=== PATIENT | female | born 1940 | race Caucasian/White ===

== ENCOUNTER → 2016-12-22 | Outpatient (CLI) | payer MEDICARE, MEDICAID ==
[~2016-12-22] VITALS: Ht 167.6 cm; Wt 48.5 kg
[~2016-12-22] MED LIST: ASPI-556 PO; ATOR40TA28 PO; CALC-879 PO; DIGO125T PO; ISOS10TA16 PO; ISOS30TA6 PO; MEMA5 PO; METO100XL PO; NITR.4 SL; PRED5TAB PO; RANO500T3 PO; ROFL500T PO; VITAD1000 PO
[2016-12-22 12:09] VITALS: BP 129/66
== END | disposition home or self-care (01) ==
LOC: SRCNTR 12:02
PROVIDERS: ATTEND Hospitalist
DX: J44.9 Chronic obstructive pulmonary disease, unspecified (principal); E78.5 Hyperlipidemia, unspecified; I25.10 Atherosclerotic heart disease of native coronary artery without angina pectoris; I49.9 Cardiac arrhythmia, unspecified; I10 Essential (primary) hypertension; M19.90 Unspecified osteoarthritis, unspecified site; F03.90 Unspecified dementia, unspecified severity, without behavioral disturbance, psychotic disturbance, mood disturbance, and anxiety
CPT/HCPCS: G0463

== ENCOUNTER → 2017-01-30 | Outpatient (CLI) | payer MEDICARE, MEDICAID ==
[~2017-01-30] VITALS: Ht 167.6 cm; Wt 49.0 kg
[~2017-01-30] MED LIST changes: -CALC-879 PO; -ISOS30TA6 PO; -PRED5TAB PO; -RANO500T3 PO; -ROFL500T PO
[2017-01-30 10:59] VITALS: BP 130/72
== END | disposition home or self-care (01) ==
LOC: SRCNTR 10:37
PROVIDERS: ATTEND Hospitalist
DX: J44.9 Chronic obstructive pulmonary disease, unspecified (principal); I10 Essential (primary) hypertension; E78.5 Hyperlipidemia, unspecified; I49.9 Cardiac arrhythmia, unspecified
CPT/HCPCS: G0463

== ENCOUNTER → 2017-02-05 | Outpatient (CLI) | payer MEDICARE, OTHER ==
[2017-02-05 12:43] LABS: BASOPHILS % (AUTO) 0.4 % (0.0-2.0); EOSINOPHILS % (AUTO) 0.8 % (1.0-6.0); HEMATOCRIT 45.6 % (36-46); HEMOGLOBIN 14.7 g/dL (12.0-16.0); LYMPHOCYTES # (AUTO) 1.8 K/uL (1.0-4.8); LYMPHOCYTES % (AUTO) 21.5 % (22.0-44.0); MEAN CORPUSCULAR HEMOGLOBIN 29.4 pg (26.0-34.0); MEAN CORPUSCULAR HGB CONC 32.3 G/dL (31.0-37.0); MEAN CORPUSCULAR VOLUME 91 fL (80-100); MONOCYTES # (AUTO) 0.5 K/uL (0.1-1.0); MONOCYTES % (AUTO) 6.1 % (2.0-9.0); NEUTROPHILS # (AUTO) 5.8 K/uL (1.8-7.7); NEUTROPHILS % (AUTO) 71.2 % (40.0-70.0); PLATELET COUNT (AUTO) 284 K/uL (150-450); RED CELL DISTRIBUTION WIDTH 13.3 % (11.5-14.5); WHITE BLOOD COUNT (AUTO) 8.2 K/uL (4.5-11.0)
[2017-02-05 12:53] LABS: HEMOGLOBIN A1C 5.6 % (4.5-6.2)
[2017-02-05 12:57] LABS: B-TYPE NATRIURETIC PEPTIDE 37 pg/mL (0-100)
[2017-02-05 13:09] LABS: ALANINE AMINOTRANSFERASE 28 U/L (12-78); ANION GAP 2 mmol/L (8-16); ASPARTATE AMINOTRANSFERASE 22 U/L (15-37); BILIRUBIN,TOTAL 0.7 mg/dL (0.1-1.0); CALCIUM, TOTAL 9.4 mg/dL (8.8-10.5); CARBON DIOXIDE 34 mmol/L (22-29); CHLORIDE 103 mmol/L (98-107); CHOL/HDL RATIO 2.3 (3.9-5.7); CREATININE 0.87 mg/dL (0.60-1.30); DIGOXIN < 0.20 ng/mL (0.90-2.00); GLOMERULAR FILTR. RATE CALC > 60 mL/min (>60); POTASSIUM 3.9 mmol/L (3.5-5.1); SODIUM SERUM 139 mmol/L (136-145); THYROID STIMULATING HORMONE 1.08 uIU/mL (0.36-3.74); TOTAL PROTEIN, SERUM 7.4 g/dL (6.4-8.2); UREA NITROGEN, BLOOD 20 mg/dL (7-18)
== END | disposition home or self-care (01) ==
LOC: LABPV 12:05
PROVIDERS: ATTEND Internal Medicine Cardiovascular Disease
DX: I11.0 Hypertensive heart disease with heart failure (principal); I50.9 Heart failure, unspecified; E11.8 Type 2 diabetes mellitus with unspecified complications; E55.9 Vitamin D deficiency, unspecified
CPT/HCPCS: 82306; 83036; 83735; 84439; 84443; 84480

== ENCOUNTER → 2017-03-12 | Outpatient (CLI) | payer MEDICARE, OTHER ==
[2017-03-12 11:06] LABS: BASOPHILS % (AUTO) 0.4 % (0.0-2.0); EOSINOPHILS % (AUTO) 1.5 % (1.0-6.0); HEMATOCRIT 46.4 % (36-46); HEMOGLOBIN 14.6 g/dL (12.0-16.0); LYMPHOCYTES # (AUTO) 1.7 K/uL (1.0-4.8); LYMPHOCYTES % (AUTO) 11.6 % (22.0-44.0); MEAN CORPUSCULAR HEMOGLOBIN 28.9 pg (26.0-34.0); MEAN CORPUSCULAR HGB CONC 31.4 G/dL (31.0-37.0); MEAN CORPUSCULAR VOLUME 92 fL (80-100); MONOCYTES # (AUTO) 0.7 K/uL (0.1-1.0); MONOCYTES % (AUTO) 4.7 % (2.0-9.0); NEUTROPHILS # (AUTO) 12.2 K/uL (1.8-7.7); NEUTROPHILS % (AUTO) 81.8 % (40.0-70.0); PLATELET COUNT (AUTO) 505 K/uL (150-450); RED BLOOD CELL COUNT(AUTO) 5.04 MIL/uL (4.00-5.20); RED CELL DISTRIBUTION WIDTH 13.8 % (11.5-14.5)
[2017-03-12 11:20] LABS: HEMOGLOBIN A1C 5.3 % (4.5-6.2)
[2017-03-12 11:30] LABS: ALANINE AMINOTRANSFERASE 22 U/L (12-78); ALBUMIN 3.4 g/dL (3.4-5.0); ANION GAP 4 mmol/L (8-16); ASPARTATE AMINOTRANSFERASE 19 U/L (15-37); BILIRUBIN,TOTAL 0.3 mg/dL (0.1-1.0); CALCIUM, TOTAL 9.5 mg/dL (8.8-10.5); CARBON DIOXIDE 36 mmol/L (22-29); CHLORIDE 104 mmol/L (98-107); CHOL/HDL RATIO 4.2 (3.9-5.7); CREATININE 1.03 mg/dL (0.60-1.30); GLOMERULAR FILTR. RATE CALC 52 mL/min (>60); POTASSIUM 4.3 mmol/L (3.5-5.1); SODIUM SERUM 144 mmol/L (136-145); THYROID STIMULATING HORMONE 1.07 uIU/mL (0.36-3.74); TOTAL PROTEIN, SERUM 7.3 g/dL (6.4-8.2); UREA NITROGEN, BLOOD 19 mg/dL (7-18)
[2017-03-12 11:43] LABS: DIGOXIN < 0.20 ng/mL (0.90-2.00)
[2017-03-12 11:45] LABS: B-TYPE NATRIURETIC PEPTIDE 74 pg/mL (0-100)
== END | disposition home or self-care (01) ==
LOC: LABPV 09:49
PROVIDERS: ATTEND Internal Medicine Cardiovascular Disease
DX: I11.0 Hypertensive heart disease with heart failure (principal); I50.9 Heart failure, unspecified; E11.8 Type 2 diabetes mellitus with unspecified complications; E55.9 Vitamin D deficiency, unspecified
CPT/HCPCS: 82306; 83036; 83735; 84439; 84443

== ENCOUNTER → 2017-04-24 | Outpatient (CLI) | payer MEDICARE, OTHER | END | disposition home or self-care (01) | LOC: RADMN 13:30 | PROVIDERS: ATTEND Internal Medicine Pulmonary Disease | DX: J44.1 Chronic obstructive pulmonary disease with (acute) exacerbation (principal); J98.8 Other specified respiratory disorders | CPT/HCPCS: 71250 ==

== ENCOUNTER → 2017-05-13 | Outpatient (CLI) | payer MEDICARE, OTHER ==
[2017-05-13 11:42] LABS: BASOPHILS # (AUTO) 0.03 K/uL (0.00-0.20); BASOPHILS % (AUTO) 0.4 % (0.0-2.0); EOSINOPHILS % (AUTO) 0 % (1.0-6.0); HEMATOCRIT 44.4 % (36-46); HEMOGLOBIN 14.5 g/dL (12.0-16.0); LYMPHOCYTES # (AUTO) 1.3 K/uL (1.0-4.8); LYMPHOCYTES % (AUTO) 16.5 % (22.0-44.0); MEAN CORPUSCULAR HEMOGLOBIN 30.4 pg (26.0-34.0); MEAN CORPUSCULAR HGB CONC 32.6 G/dL (31.0-37.0); MEAN CORPUSCULAR VOLUME 93 fL (80-100); MONOCYTES # (AUTO) 0.5 K/uL (0.1-1.0); MONOCYTES % (AUTO) 6.8 % (2.0-9.0); NEUTROPHILS % (AUTO) 76.4 % (40.0-70.0); PLATELET COUNT (AUTO) 255 K/uL (150-450); RED BLOOD CELL COUNT(AUTO) 4.77 MIL/uL (4.00-5.20); RED CELL DISTRIBUTION WIDTH 13.5 % (11.5-14.5); WHITE BLOOD COUNT (AUTO) 7.9 K/uL (4.5-11.0)
[2017-05-13 12:14] LABS: ALBUMIN 3.9 g/dL (3.4-5.0); BILIRUBIN,TOTAL 0.6 mg/dL (0.1-1.0); CALCIUM, TOTAL 8.9 mg/dL (8.8-10.5); CHOL/HDL RATIO 2.6 (3.9-5.7); CREATININE 0.98 mg/dL (0.60-1.30); MAGNESIUM 1.9 mg/dL (1.80-2.40); POTASSIUM 3.9 mmol/L (3.5-5.1); THYROID STIMULATING HORMONE 1.05 uIU/mL (0.36-3.74); TOTAL PROTEIN, SERUM 6.9 g/dL (6.4-8.2)
[2017-05-13 12:25] LABS: HEMOGLOBIN A1C 5.1 % (4.5-6.2)
== END | disposition home or self-care (01) ==
LOC: LABPV 09:18
PROVIDERS: ATTEND Internal Medicine Cardiovascular Disease
DX: I11.0 Hypertensive heart disease with heart failure (principal); I50.9 Heart failure, unspecified; E11.8 Type 2 diabetes mellitus with unspecified complications; E55.9 Vitamin D deficiency, unspecified
CPT/HCPCS: 82306; 83036; 83735; 84439; 84443

== ENCOUNTER → 2017-07-16 | Outpatient (CLI) | payer MEDICARE, OTHER ==
[2017-07-16 13:01] LABS: BASOPHILS % (AUTO) 0.4 % (0.0-2.0); EOSINOPHILS % (AUTO) 0 % (1.0-6.0); HEMATOCRIT 45.3 % (36-46); HEMOGLOBIN 15.3 g/dL (12.0-16.0); LYMPHOCYTES # (AUTO) 1.6 K/uL (1.0-4.8); LYMPHOCYTES % (AUTO) 20.6 % (22.0-44.0); MEAN CORPUSCULAR HEMOGLOBIN 30.5 pg (26.0-34.0); MEAN CORPUSCULAR HGB CONC 33.7 G/dL (31.0-37.0); MEAN CORPUSCULAR VOLUME 90 fL (80-100); MONOCYTES # (AUTO) 0.6 K/uL (0.1-1.0); MONOCYTES % (AUTO) 7.3 % (2.0-9.0); NEUTROPHILS # (AUTO) 5.6 K/uL (1.8-7.7); NEUTROPHILS % (AUTO) 71.7 % (40.0-70.0); PLATELET COUNT (AUTO) 277 K/uL (150-450); RED BLOOD CELL COUNT(AUTO) 5.01 MIL/uL (4.00-5.20); RED CELL DISTRIBUTION WIDTH 12.9 % (11.5-14.5); WHITE BLOOD COUNT (AUTO) 7.8 K/uL (4.5-11.0)
[2017-07-16 13:04] LABS: HEMOGLOBIN A1C 5.5 % (4.5-6.2)
[2017-07-16 13:16] LABS: ALBUMIN 4.1 g/dL (3.4-5.0); BILIRUBIN,TOTAL 0.6 mg/dL (0.1-1.0); CALCIUM, TOTAL 9.8 mg/dL (8.8-10.5); CHOL/HDL RATIO 3.5 (3.9-5.7); CREATININE 0.99 mg/dL (0.60-1.30); DIGOXIN 0.22 ng/mL (0.90-2.00); POTASSIUM 4.4 mmol/L (3.5-5.1); THYROID STIMULATING HORMONE 1.73 uIU/mL (0.36-3.74); TOTAL PROTEIN, SERUM 7.3 g/dL (6.4-8.2)
== END | disposition home or self-care (01) ==
LOC: LABPV 11:11
PROVIDERS: ATTEND Internal Medicine Cardiovascular Disease
DX: I11.0 Hypertensive heart disease with heart failure (principal); I50.9 Heart failure, unspecified; E55.9 Vitamin D deficiency, unspecified; E11.8 Type 2 diabetes mellitus with unspecified complications
CPT/HCPCS: 82306; 83036; 83735; 84439; 84443

== ENCOUNTER → 2017-08-17 | Outpatient (CLI) | payer MEDICARE, OTHER ==
[~2017-08-17] MED LIST changes: +BUDE10.2 IH; +BUDE180H PO; +CARV6 PO; +CINA30 PO; +CIPR-278 PO; +CLOP75 PO; +DILT60 PO; +DONE5TAB5 PO; +HYDR25TA PO; +IPRA4AER IH; +PRED20 PO; +ROFL500T PO; +VERA120 PO
== END | disposition home or self-care (01) ==
LOC: RADPV 09:25
PROVIDERS: ATTEND Internal Medicine Cardiovascular Disease
DX: J98.11 Atelectasis (principal); J98.4 Other disorders of lung; I70.0 Atherosclerosis of aorta
CPT/HCPCS: 71020

== ENCOUNTER → 2017-10-05 | Outpatient (CLI) | payer MEDICARE, OTHER ==
[2017-10-05 10:49] LABS: BASOPHILS % (AUTO) 0.6 % (0.0-2.0); EOSINOPHILS % (AUTO) 0.4 % (1.0-6.0); HEMATOCRIT 44.6 % (36-46); HEMOGLOBIN 14.7 g/dL (12.0-16.0); LYMPHOCYTES # (AUTO) 1.4 K/uL (1.0-4.8); LYMPHOCYTES % (AUTO) 16.2 % (22.0-44.0); MEAN CORPUSCULAR HEMOGLOBIN 30.5 pg (26.0-34.0); MEAN CORPUSCULAR VOLUME 92 fL (80-100); MONOCYTES # (AUTO) 0.6 K/uL (0.1-1.0); MONOCYTES % (AUTO) 6.4 % (2.0-9.0); NEUTROPHILS # (AUTO) 6.8 K/uL (1.8-7.7); NEUTROPHILS % (AUTO) 76.4 % (40.0-70.0); PLATELET COUNT (AUTO) 286 K/uL (150-450); RED BLOOD CELL COUNT(AUTO) 4.84 MIL/uL (4.00-5.20); RED CELL DISTRIBUTION WIDTH 13.9 % (11.5-14.5); WHITE BLOOD COUNT (AUTO) 8.9 K/uL (4.5-11.0)
[2017-10-05 11:05] LABS: ALANINE AMINOTRANSFERASE 24 U/L (12-78); ALBUMIN 4.2 g/dL (3.4-5.0); ANION GAP 6 mmol/L (8-16); ASPARTATE AMINOTRANSFERASE 26 U/L (15-37); BILIRUBIN,TOTAL 0.6 mg/dL (0.1-1.0); CALCIUM, TOTAL 9.5 mg/dL (8.8-10.5); CARBON DIOXIDE 32 mmol/L (22-29); CHLORIDE 104 mmol/L (98-107); CHOL/HDL RATIO 2.6 (3.9-5.7); CREATININE 0.95 mg/dL (0.60-1.30); GLOMERULAR FILTR. RATE CALC 57 mL/min (>60); POTASSIUM 4.4 mmol/L (3.5-5.1); SODIUM SERUM 142 mmol/L (136-145); THYROID STIMULATING HORMONE 1.56 uIU/mL (0.36-3.74); TOTAL PROTEIN, SERUM 7.3 g/dL (6.4-8.2); UREA NITROGEN, BLOOD 23 mg/dL (7-18)
[2017-10-05 11:18] LABS: HEMOGLOBIN A1C 5.3 % (4.5-6.2)
[2017-10-05 12:20] LABS: DIGOXIN < 0.20 ng/mL (0.90-2.00)
== END | disposition home or self-care (01) ==
LOC: LABPV 08:26
PROVIDERS: ATTEND Internal Medicine Cardiovascular Disease
DX: I11.0 Hypertensive heart disease with heart failure (principal); I50.9 Heart failure, unspecified; E11.65 Type 2 diabetes mellitus with hyperglycemia; E55.9 Vitamin D deficiency, unspecified
CPT/HCPCS: 82306; 83036; 83735; 84439; 84443

== ENCOUNTER 2017-10-09 09:51 | Emergency (ER) | payer MEDICARE, OTHER ==
[~2017-10-09] VITALS: Ht 167.6 cm; Wt 50.0 kg
[~2017-10-09 09:51] MED LIST changes: -BUDE10.2 IH; -BUDE180H PO; -CARV6 PO; -CINA30 PO; -CIPR-278 PO; -CLOP75 PO; -DILT60 PO; -DONE5TAB5 PO; -HYDR25TA PO; -IPRA4AER IH; -PRED20 PO; -ROFL500T PO; -VERA120 PO
[2017-10-09] MEDS ORDERED: ACETAMINOPHEN 325 MG TABLET PO ONE (10:30)
[2017-10-09] MEDS ORDERED: KETOROLAC TROMETHAMINE 30 MG/ML VIAL IVP ONE (10:30)
[2017-10-09] MEDS ORDERED: MORPHINE SULFATE 2 MG/ML SYRINGE IVP ONE (10:30)
[2017-10-09 11:55] VITALS: BP 116/72
== END 2017-10-09 12:09 | disposition home or self-care (01) ==
LOC: EMS 09:52
DX: M54.9 Dorsalgia, unspecified (principal); M79.601 Pain in right arm; M79.602 Pain in left arm; G89.29 Other chronic pain; I25.10 Atherosclerotic heart disease of native coronary artery without angina pectoris; J44.9 Chronic obstructive pulmonary disease, unspecified; I11.9 Hypertensive heart disease without heart failure; I25.2 Old myocardial infarction; Z87.891 Personal history of nicotine dependence; Z88.5 Allergy status to narcotic agent; Z88.8 Allergy status to other drugs, medicaments and biological substances
CPT/HCPCS: 96374; 96375; 99284; J1885; J2270

== ENCOUNTER 2017-11-11 06:58 | Emergency (ER) | payer MEDICARE ==
[~2017-11-11] VITALS: Ht 157.5 cm; Wt 43.0 kg
[2017-11-11] MEDS ORDERED: CINA30 PO (07:18)
[2017-11-11] MEDS ORDERED: DILT60 PO (07:18)
[2017-11-11] MEDS ORDERED: CARV6 PO (07:18)
[2017-11-11] MEDS ORDERED: CLOP75 PO (07:18)
[2017-11-11] MEDS ORDERED: BUDE10.2 IH (07:18)
[2017-11-11] MEDS ORDERED: ROFL500T PO (07:18)
[2017-11-11] MEDS ORDERED: VERA120 PO (07:18)
[2017-11-11] MEDS ORDERED: HYDR25TA PO (07:18)
[2017-11-11] MEDS ORDERED: CIPR-278 PO (07:18)
[2017-11-11 09:55] LABS: BASOPHILS % (AUTO) 0.1 % (0.0-2.0); EOSINOPHILS % (AUTO) 0 % (1.0-6.0); HEMATOCRIT 42.1 % (36-46); HEMOGLOBIN 13.9 g/dL (12.0-16.0); LYMPHOCYTES # (AUTO) 1.3 K/uL (1.0-4.8); LYMPHOCYTES % (AUTO) 11.5 % (22.0-44.0); MEAN CORPUSCULAR HEMOGLOBIN 29.9 pg (26.0-34.0); MEAN CORPUSCULAR VOLUME 91 fL (80-100); MONOCYTES # (AUTO) 0.5 K/uL (0.1-1.0); MONOCYTES % (AUTO) 4.7 % (2.0-9.0); NEUTROPHILS # (AUTO) 9.4 K/uL (1.8-7.7); NEUTROPHILS % (AUTO) 83.7 % (40.0-70.0); PLATELET COUNT (AUTO) 291 K/uL (150-450); RED BLOOD CELL COUNT(AUTO) 4.64 MIL/uL (4.00-5.20); RED CELL DISTRIBUTION WIDTH 14.3 % (11.5-14.5)
[2017-11-11 10:09] LABS: CALCIUM, TOTAL 8.4 mg/dL (8.8-10.5); CREATININE 1.11 mg/dL (0.60-1.30); POTASSIUM 3.7 mmol/L (3.5-5.1)
[2017-11-11 10:15] LABS: BILIRUBIN,TOTAL 0.6 mg/dL (0.1-1.0); TOTAL PROTEIN, SERUM 6.6 g/dL (6.4-8.2)
[2017-11-11 12:36] VITALS: BP 130/68
== END 2017-11-11 12:58 | disposition home or self-care (01) ==
LOC: EMS 06:59
DX: R06.02 Shortness of breath (principal); R06.2 Wheezing; I25.10 Atherosclerotic heart disease of native coronary artery without angina pectoris; J44.9 Chronic obstructive pulmonary disease, unspecified; I11.0 Hypertensive heart disease with heart failure; I50.9 Heart failure, unspecified; Z88.6 Allergy status to analgesic agent; Z88.8 Allergy status to other drugs, medicaments and biological substances; Z79.82 Long term (current) use of aspirin; Z79.899 Other long term (current) drug therapy; Z90.710 Acquired absence of both cervix and uterus; Z87.891 Personal history of nicotine dependence
CPT/HCPCS: 93005; 99285

== ENCOUNTER 2017-11-21 13:28 | Inpatient (IN) | payer MEDICARE ==
[~2017-11-21] VITALS: Ht 167.6 cm; Wt 48.0 kg
[~2017-11-21 13:28] MED LIST changes: +BUDE10.2 IH; +CARV6 PO; +CINA30 PO; +CIPR-278 PO; +CLOP75 PO; +DILT60 PO; +HYDR25TA PO; -MEMA5 PO; +ROFL500T PO; +VERA120 PO
[2017-11-21] MEDS ORDERED: 0.9% SODIUM CHLORIDE 15 ML NEB SOLUTION NEB ONE (13:41)
[2017-11-21] MEDS ORDERED: ALBUTEROL SULFATE 5 MG/ML 20 ML NEB SOLN [BULK] NEB ONE ×3 (13:41→16:30)
[2017-11-21] MEDS ORDERED: LEVALBUTEROL HCL 1.25 MG/0.5 ML NEB SOLUTION NEB ONE (13:45)
[2017-11-21] MEDS ORDERED: IPRATROPIUM BROMIDE 0.5 MG/2.5 ML NEB SOLUTION NEB ONE ×2 (13:45)
[2017-11-21 14:54] LABS: INFLUENZA TYPE A NEGATIVE FOR TYPE A (NEGATIVE); INFLUENZA TYPE B NEGATIVE FOR TYPE B (NEGATIVE)
[2017-11-21] MEDS ORDERED: PredniSONE 20 MG TABLET PO ONE (16:15)
[2017-11-21 16:36] LABS: BASOPHILS % (AUTO) 0.2 % (0.0-2.0); EOSINOPHILS % (AUTO) 0 % (1.0-6.0); HEMATOCRIT 40.9 % (36-46); HEMOGLOBIN 13.7 g/dL (12.0-16.0); LYMPHOCYTES # (AUTO) 0.4 K/uL (1.0-4.8); LYMPHOCYTES % (AUTO) 5.1 % (22.0-44.0); MEAN CORPUSCULAR HEMOGLOBIN 30.3 pg (26.0-34.0); MEAN CORPUSCULAR HGB CONC 33.4 G/dL (31.0-37.0); MEAN CORPUSCULAR VOLUME 91 fL (80-100); MONOCYTES # (AUTO) 0.6 K/uL (0.1-1.0); MONOCYTES % (AUTO) 8.1 % (2.0-9.0); NEUTROPHILS # (AUTO) 6.4 K/uL (1.8-7.7); PLATELET COUNT (AUTO) 207 K/uL (150-450); RED BLOOD CELL COUNT(AUTO) 4.51 MIL/uL (4.00-5.20); RED CELL DISTRIBUTION WIDTH 14.8 % (11.5-14.5)
[2017-11-21 16:53] LABS: NEUTROPHILS % (AUTO) 86.6 % (40.0-70.0)
[2017-11-21 16:54] LABS: ALANINE AMINOTRANSFERASE 19 U/L (12-78); ALBUMIN 3.1 g/dL (3.4-5.0); ALKALINE PHOSPHATASE 55 U/L (46-116); ANION GAP 9 mmol/L (8-16); ASPARTATE AMINOTRANSFERASE 22 U/L (15-37); BILIRUBIN,TOTAL 0.4 mg/dL (0.1-1.0); CALCIUM, TOTAL 8.9 mg/dL (8.8-10.5); CARBON DIOXIDE 30 mmol/L (22-29); CHLORIDE 98 mmol/L (98-107); CREATININE 1.03 mg/dL (0.60-1.30); GLOMERULAR FILTR. RATE CALC 52 mL/min (>60); GLUCOSE,RANDOM 97 mg/dL (70-110); SODIUM SERUM 137 mmol/L (136-145); TOTAL PROTEIN, SERUM 6.4 g/dL (6.4-8.2); UREA NITROGEN, BLOOD 13 mg/dL (7-18)
[2017-11-21 17:00] LABS: POTASSIUM 2.9 mmol/L (3.5-5.1)
[2017-11-21] MEDS ORDERED: POTASSIUM CHLORIDE 20 MEQ ER TABLET PO ONE (17:00)
[2017-11-21] MEDS ORDERED: POTASSIUM CHL 10 MEQ/WATER 50 ML IV ONE (17:00)
[2017-11-21] MEDS ORDERED: ONDANSETRON HCL 4 MG/2 ML VIAL IVP PRN ×2 (18:15→19:30)
[2017-11-21] MEDS ORDERED: 0.9% SODIUM CHLORIDE 10 ML SYRINGE IVP PRN ×2 (18:15→19:30)
[2017-11-21] MEDS ORDERED: ACETAMINOPHEN 325 MG TABLET PO PRN ×2 (18:15→19:30)
[2017-11-21 19:07] LABS: ABG A-A DIFF O2 123.8 mmHg (10-20.0); ABG CARBOXYHEMOGLOBIN 1.5 % (0.0-1.5); ABG HCO3 26.2 mmol/L (22.0-26.0); ABG METHEMOGLOBIN 0.5 % (0.0-1.5); ABG OXYGEN CONTENT 17.7 mL/dL (15.0-23.0); ABG OXYGEN SATURATION 91.8 % (95.0-98.0); ABG PCO2 50 mmHg (35-45); ABG PH 7.371 (7.35-7.450); O2 DEVICE,BLOOD GAS CANNULA (ROOM AIR); PO2, ARTERIAL BG 60.5 mmHg (75.0-83.0); SITE, BLOOD GAS LFT RADIAL; SOURCE, BLOOD GAS ARTERIAL; TEMPERATURE, FAHRENHEIT, BG 98.6 FAHREN (96.0-98.6)
[2017-11-21] MEDS ORDERED: NITROGLYCERIN 0.4 MG SUBLINGUAL TABLET #25 SL PRN (19:15)
[2017-11-21] MEDS ORDERED: MAGNESIUM HYDROXIDE SUSPENSION 30 ML UDCUP PO PRN (19:30)
[2017-11-21] MEDS ORDERED: ALBUTEROL SULFATE 2.5 MG/0.5 ML NEB SOLUTION NEB PRN (19:30)
[2017-11-21] MEDS ORDERED: IPRATROPIUM BROMIDE 0.5 MG/2.5 ML NEB SOLUTION NEB PRN (19:30)
[2017-11-21] MEDS ORDERED: BISACODYL 10 MG RECTAL RECTAL SUPPOSITORY PR PRN (19:30)
[2017-11-21] MEDS: PANTOPRAZOLE SODIUM 40 MG DR TABLET PO SCH (19:39)
[2017-11-21] MEDS: MethylPREDNISolone SOD SUCC 40 MG/ML VIAL IVP SCH ×2 (19:40→23:40)
[2017-11-21 19:42] LABS: DIGOXIN < 0.20 ng/mL (0.90-2.00)
[2017-11-21] MEDS: AZITHROMYCIN 500 MG/NS 250 ML IV SCH (20:12)
[2017-11-21] MEDS: ALBUTEROL SULFATE 2.5 MG/0.5 ML NEB SOLUTION NEB SCH (20:19)
[2017-11-21] MEDS: IPRATROPIUM BROMIDE 0.5 MG/2.5 ML NEB SOLUTION NEB SCH (20:19)
[2017-11-21] MEDS: DOCUSATE SODIUM 100 MG CAPSULE PO SCH (21:00)
[2017-11-21 22:26] VITALS: BP 129/77
[2017-11-21] MEDS: HEPARIN SODIUM,PORCINE 5,000 UNITS/ML VIAL SQ SCH (23:05)
[2017-11-21] MEDS: CARVEDILOL 6.25 MG TABLET PO SCH (23:06)
[2017-11-22 00:22] VITALS: BP 109/59
[2017-11-22] MEDS: IPRATROPIUM BROMIDE 0.5 MG/2.5 ML NEB SOLUTION NEB SCH ×4 (02:00→19:42)
[2017-11-22] MEDS: ALBUTEROL SULFATE 2.5 MG/0.5 ML NEB SOLUTION NEB SCH ×4 (02:00→19:42)
[2017-11-22 05:00] VITALS: BP 112/50
[2017-11-22 08:03] LABS: EOSINOPHILS % (AUTO) 0.03 % (1.0-6.0); HEMATOCRIT 39.3 % (36-46); HEMOGLOBIN 12.8 g/dL (12.0-16.0); LYMPHOCYTES # (AUTO) 0.4 K/uL (1.0-4.8); LYMPHOCYTES % (AUTO) 7.1 % (22.0-44.0); MEAN CORPUSCULAR HEMOGLOBIN 30.1 pg (26.0-34.0); MEAN CORPUSCULAR HGB CONC 32.5 G/dL (31.0-37.0); MEAN CORPUSCULAR VOLUME 93 fL (80-100); MONOCYTES # (AUTO) 0.2 K/uL (0.1-1.0); NEUTROPHILS # (AUTO) 4.4 K/uL (1.8-7.7); PLATELET COUNT (AUTO) 176 K/uL (150-450); RED BLOOD CELL COUNT(AUTO) 4.25 MIL/uL (4.00-5.20); RED CELL DISTRIBUTION WIDTH 14.9 % (11.5-14.5)
[2017-11-22 08:06] LABS: NEUTROPHILS % (AUTO) 89.8 % (40.0-70.0)
[2017-11-22] MEDS: PANTOPRAZOLE SODIUM 40 MG DR TABLET PO SCH (08:19)
[2017-11-22] MEDS: CHOLECALCIFEROL (VIT D3) 1,000 UNITS TABLET PO SCH (08:19)
[2017-11-22] MEDS: CARVEDILOL 6.25 MG TABLET PO SCH ×2 (08:19→20:31)
[2017-11-22] MEDS: ASPIRIN 81 MG EC TABLET PO SCH (08:19)
[2017-11-22] MEDS: HEPARIN SODIUM,PORCINE 5,000 UNITS/ML VIAL SQ SCH ×2 (08:19→20:31)
[2017-11-22] MEDS: CLOPIDOGREL BISULFATE 75 MG TABLET PO SCH (08:19)
[2017-11-22] MEDS: ATORVASTATIN CALCIUM 40 MG TABLET PO SCH (08:19)
[2017-11-22] MEDS: DOCUSATE SODIUM 100 MG CAPSULE PO SCH ×2 (08:19→20:31)
[2017-11-22] MEDS: MethylPREDNISolone SOD SUCC 40 MG/ML VIAL IVP SCH ×3 (08:20→23:16)
[2017-11-22 08:28] VITALS: BP 118/58
[2017-11-22 08:31] LABS: ALANINE AMINOTRANSFERASE 16 U/L (12-78); ALBUMIN 2.8 g/dL (3.4-5.0); ALKALINE PHOSPHATASE 55 U/L (46-116); ANION GAP 3 mmol/L (8-16); ASPARTATE AMINOTRANSFERASE 16 U/L (15-37); BILIRUBIN,TOTAL 0.3 mg/dL (0.1-1.0); CALCIUM, TOTAL 8.8 mg/dL (8.8-10.5); CARBON DIOXIDE 31 mmol/L (22-29); CHLORIDE 104 mmol/L (98-107); CREATININE 0.88 mg/dL (0.60-1.30); GLOMERULAR FILTR. RATE CALC > 60 mL/min (>60); GLUCOSE,RANDOM 189 mg/dL (70-110); POTASSIUM 4.8 mmol/L (3.5-5.1); SODIUM SERUM 138 mmol/L (136-145); TOTAL PROTEIN, SERUM 6.1 g/dL (6.4-8.2); UREA NITROGEN, BLOOD 16 mg/dL (7-18)
[2017-11-22 08:58] LABS: PHOSPHORUS 1.4 mg/dL (2.5-4.9)
[2017-11-22] MEDS ORDERED: POTASSIUM PHOS/SODIUM PHOS MIXTURE 1 POWDER PACKET PO ONE (09:15)
[2017-11-22] MEDS ORDERED: POTASSIUM PHOS,M-BASIC-D-BASIC 20 MMOL in DEXTROSE 5%-WATER 150 ML IV ONE (13:00)
[2017-11-22 19:28] VITALS: BP 118/69
[2017-11-22] MEDS: BUDESONIDE 0.5 MG/2 ML NEB SOLUTION NEB SCH (19:57)
[2017-11-22] MEDS ORDERED: SODIUM PHOS M BASIC D BASIC IV ONE (20:00)
[2017-11-22] MEDS ORDERED: DEXTROSE 5% IV ONE (20:00)
[2017-11-22] MEDS ORDERED: WATER IV ONE (20:00)
[2017-11-22] MEDS: AZITHROMYCIN 500 MG/NS 250 ML IV SCH (20:32)
[2017-11-22] MEDS ORDERED: DONEPEZIL HCL 5 MG TABLET PO SCH (21:00)
[2017-11-23 00:29] VITALS: BP 114/64
[2017-11-23] MEDS: ALBUTEROL SULFATE 2.5 MG/0.5 ML NEB SOLUTION NEB SCH ×2 (02:00→08:50)
[2017-11-23] MEDS: IPRATROPIUM BROMIDE 0.5 MG/2.5 ML NEB SOLUTION NEB SCH ×2 (02:00→08:50)
[2017-11-23 05:00] VITALS: BP 110/58
[2017-11-23 06:10] LABS: FOLATE SERUM 6.9 ng/mL (5.4-)
[2017-11-23 07:28] VITALS: BP 112/70
[2017-11-23 07:29] LABS: EOSINOPHILS % (AUTO) 0 % (1.0-6.0); HEMATOCRIT 40.4 % (36-46); HEMOGLOBIN 13.3 g/dL (12.0-16.0); LYMPHOCYTES # (AUTO) 0.7 K/uL (1.0-4.8); LYMPHOCYTES % (AUTO) 5.5 % (22.0-44.0); MEAN CORPUSCULAR HEMOGLOBIN 30.3 pg (26.0-34.0); MEAN CORPUSCULAR VOLUME 92 fL (80-100); MONOCYTES # (AUTO) 0.4 K/uL (0.1-1.0); MONOCYTES % (AUTO) 3.5 % (2.0-9.0); NEUTROPHILS # (AUTO) 11.7 K/uL (1.8-7.7); PLATELET COUNT (AUTO) 234 K/uL (150-450); RED CELL DISTRIBUTION WIDTH 14.9 % (11.5-14.5)
[2017-11-23] MEDS: MethylPREDNISolone SOD SUCC 40 MG/ML VIAL IVP SCH (08:08)
[2017-11-23] MEDS: CHOLECALCIFEROL (VIT D3) 1,000 UNITS TABLET PO SCH (08:09)
[2017-11-23] MEDS: DOCUSATE SODIUM 100 MG CAPSULE PO SCH (08:09)
[2017-11-23] MEDS: HEPARIN SODIUM,PORCINE 5,000 UNITS/ML VIAL SQ SCH (08:09)
[2017-11-23] MEDS: ASPIRIN 81 MG EC TABLET PO SCH (08:09)
[2017-11-23] MEDS: CARVEDILOL 6.25 MG TABLET PO SCH (08:09)
[2017-11-23] MEDS: CLOPIDOGREL BISULFATE 75 MG TABLET PO SCH (08:09)
[2017-11-23] MEDS: ATORVASTATIN CALCIUM 40 MG TABLET PO SCH (08:09)
[2017-11-23] MEDS: PANTOPRAZOLE SODIUM 40 MG DR TABLET PO SCH (08:09)
[2017-11-23 08:18] LABS: ALBUMIN 2.8 g/dL (3.4-5.0); BILIRUBIN,TOTAL 0.2 mg/dL (0.1-1.0); CALCIUM, TOTAL 8.9 mg/dL (8.8-10.5); CREATININE 0.95 mg/dL (0.60-1.30); MAGNESIUM 1.8 mg/dL (1.80-2.40); PHOSPHORUS 3.8 mg/dL (2.5-4.9); POTASSIUM 3.9 mmol/L (3.5-5.1); TOTAL PROTEIN, SERUM 6.1 g/dL (6.4-8.2)
[2017-11-23] MEDS: BUDESONIDE 0.5 MG/2 ML NEB SOLUTION NEB SCH (08:51)
[2017-11-23 11:34] VITALS: BP 122/81
[2017-11-23] MEDS ORDERED: DONE5TAB5 PO (12:27)
[2017-11-23] MEDS ORDERED: PRED20 PO (12:28)
[2017-11-23] MEDS ORDERED: BUDE180H PO (12:29)
[2017-11-23] MEDS ORDERED: IPRA4AER IH (12:30)
[2017-11-25 14:23] LABS: ORGANISM ID Not indicated.; S PNEUMO SOURCE Urine; STREP PNEUMONIAE AG URINE Negative (Negative); STREP.PNEUMO BODY FLUID CULT. Not Indicated
[2017-11-26 14:44] LABS: LEGIONELLA PNEUMO AG URINE Negative (Negative)
== END 2017-11-23 14:00 | disposition home or self-care (01) | DRG 189 ==
LOC: EMS 13:31 → 5S 20:57
PROVIDERS: ADMIT Internal Medicine; ATTEND Internal Medicine
DX: J96.21 Acute and chronic respiratory failure with hypoxia (principal); I11.9 Hypertensive heart disease without heart failure; G30.9 Alzheimer's disease, unspecified; I25.110 Atherosclerotic heart disease of native coronary artery with unstable angina pectoris; F02.80 Dementia in other diseases classified elsewhere, unspecified severity, without behavioral disturbance, psychotic disturbance, mood disturbance, and anxiety; J44.1 Chronic obstructive pulmonary disease with (acute) exacerbation; J96.22 Acute and chronic respiratory failure with hypercapnia; E87.6 Hypokalemia; R63.4 Abnormal weight loss; E55.9 Vitamin D deficiency, unspecified; E78.5 Hyperlipidemia, unspecified; Z91.19 Patient's noncompliance with other medical treatment and regimen; Z88.8 Allergy status to other drugs, medicaments and biological substances; Z91.041 Radiographic dye allergy status; Z79.2 Long term (current) use of antibiotics; Z79.01 Long term (current) use of anticoagulants; Z79.82 Long term (current) use of aspirin; Z79.899 Other long term (current) drug therapy; Z90.710 Acquired absence of both cervix and uterus; I25.2 Old myocardial infarction; Z87.891 Personal history of nicotine dependence; Z95.5 Presence of coronary angioplasty implant and graft
CPT/HCPCS: 70450; 71046; 71250; 82607; 82746; 82805; 83735; 84100; 84145; 84443; 87449; 87798; 87804; 87899; 93005; 93306; 93970; 94640; 94644; 97165; 99285; J0456; J1644; J2920; J3480; J3490; J7060

== ENCOUNTER → 2017-12-14 | Outpatient (CLI) | payer MEDICARE ==
[~2017-12-14] MED LIST changes: -BUDE10.2 IH; +BUDE180H PO; -CINA30 PO; -CIPR-278 PO; -DIGO125T PO; -DILT60 PO; +DONE5TAB5 PO; -HYDR25TA PO; +IPRA4AER IH; -ISOS10TA16 PO; -METO100XL PO; -NITR.4 SL; +PRED20 PO; -ROFL500T PO; -VERA120 PO
[2017-12-14 12:04] LABS: BASOPHILS % (AUTO) 1.2 % (0.0-2.0); EOSINOPHILS % (AUTO) 1.6 % (1.0-6.0); HEMOGLOBIN 13.6 g/dL (12.0-16.0); LYMPHOCYTES # (AUTO) 1.5 K/uL (1.0-4.8); LYMPHOCYTES % (AUTO) 25.3 % (22.0-44.0); MEAN CORPUSCULAR HEMOGLOBIN 30.1 pg (26.0-34.0); MEAN CORPUSCULAR HGB CONC 33.2 G/dL (31.0-37.0); MEAN CORPUSCULAR VOLUME 91 fL (80-100); MONOCYTES # (AUTO) 0.5 K/uL (0.1-1.0); MONOCYTES % (AUTO) 8.6 % (2.0-9.0); NEUTROPHILS # (AUTO) 3.7 K/uL (1.8-7.7); NEUTROPHILS % (AUTO) 63.3 % (40.0-70.0); PLATELET COUNT (AUTO) 262 K/uL (150-450); RED BLOOD CELL COUNT(AUTO) 4.52 MIL/uL (4.00-5.20); RED CELL DISTRIBUTION WIDTH 15.5 % (11.5-14.5)
[2017-12-14 12:24] LABS: HEMOGLOBIN A1C 5.4 % (4.5-6.2)
[2017-12-14 12:32] LABS: B-TYPE NATRIURETIC PEPTIDE 91 pg/mL (0-100)
[2017-12-14 12:46] LABS: ALANINE AMINOTRANSFERASE 27 U/L (12-78); ALBUMIN 3.5 g/dL (3.4-5.0); ALKALINE PHOSPHATASE 75 U/L (46-116); ANION GAP 3 mmol/L (8-16); ASPARTATE AMINOTRANSFERASE 22 U/L (15-37); BILIRUBIN,TOTAL 0.7 mg/dL (0.1-1.0); CALCIUM, TOTAL 9.3 mg/dL (8.8-10.5); CARBON DIOXIDE 34 mmol/L (22-29); CHLORIDE 108 mmol/L (98-107); CHOL/HDL RATIO 2.7 (3.9-5.7); CHOLESTEROL 192 mg/dL (131-200); CREATININE 0.78 mg/dL (0.60-1.30); FREE T4 (FREE THYROXINE) 1.11 ng/dL (0.76-1.46); GLOMERULAR FILTR. RATE CALC > 60 mL/min (>60); GLUCOSE,RANDOM 89 mg/dL (70-110); HDL CHOLESTEROL 71 mg/dL (40-60); LDL CHOL (CALC.) 105 mg/dL (0-130); POTASSIUM 3.9 mmol/L (3.5-5.1); SODIUM SERUM 145 mmol/L (136-145); THYROID STIMULATING HORMONE 1.19 uIU/mL (0.36-3.74); TOTAL PROTEIN, SERUM 6.6 g/dL (6.4-8.2); TRIGLYCERIDES 79 mg/dL (15-150); UREA NITROGEN, BLOOD 13 mg/dL (7-18)
== END | disposition home or self-care (01) ==
LOC: LABPV 10:50
PROVIDERS: ATTEND Internal Medicine Cardiovascular Disease
DX: I11.0 Hypertensive heart disease with heart failure (principal); I50.9 Heart failure, unspecified; E11.8 Type 2 diabetes mellitus with unspecified complications; E55.9 Vitamin D deficiency, unspecified; D56.5 Hemoglobin E-beta thalassemia
CPT/HCPCS: 82306; 83036; 83735; 84439; 84443

== ENCOUNTER → 2018-03-29 | Outpatient (CLI) | payer MEDICARE ==
[2018-03-29 11:59] LABS: EOSINOPHILS % (AUTO) 1.4 % (1.0-6.0); HEMATOCRIT 43.8 % (36-46); HEMOGLOBIN 14.8 g/dL (12.0-16.0); LYMPHOCYTES # (AUTO) 1.2 K/uL (1.0-4.8); LYMPHOCYTES % (AUTO) 18.1 % (22.0-44.0); MEAN CORPUSCULAR HEMOGLOBIN 30.5 pg (26.0-34.0); MEAN CORPUSCULAR HGB CONC 33.7 G/dL (31.0-37.0); MEAN CORPUSCULAR VOLUME 90 fL (80-100); MONOCYTES # (AUTO) 0.6 K/uL (0.1-1.0); MONOCYTES % (AUTO) 8.9 % (2.0-9.0); NEUTROPHILS # (AUTO) 4.6 K/uL (1.8-7.7); NEUTROPHILS % (AUTO) 70.6 % (40.0-70.0); PLATELET COUNT (AUTO) 288 K/uL (150-450); RED BLOOD CELL COUNT(AUTO) 4.85 MIL/uL (4.00-5.20); RED CELL DISTRIBUTION WIDTH 13.8 % (11.5-14.5)
[2018-03-29 12:28] LABS: B-TYPE NATRIURETIC PEPTIDE 78 pg/mL (0-100)
[2018-03-29 12:30] LABS: ALANINE AMINOTRANSFERASE 31 U/L (12-78); ALBUMIN 4.2 g/dL (3.4-5.0); ALKALINE PHOSPHATASE 98 U/L (46-116); ANION GAP 5 mmol/L (8-16); ASPARTATE AMINOTRANSFERASE 24 U/L (15-37); BILIRUBIN,TOTAL 0.8 mg/dL (0.1-1.0); CALCIUM, TOTAL 9.2 mg/dL (8.8-10.5); CARBON DIOXIDE 33 mmol/L (22-29); CHLORIDE 104 mmol/L (98-107); CHOLESTEROL 255 mg/dL (131-200); CREATININE 0.93 mg/dL (0.60-1.30); FREE T4 (FREE THYROXINE) 0.99 ng/dL (0.76-1.46); GLOMERULAR FILTR. RATE CALC 58 mL/min (>60); GLUCOSE,RANDOM 86 mg/dL (70-110); HDL CHOLESTEROL 85 mg/dL (40-60); LDL CHOL (CALC.) 159 mg/dL (0-130); POTASSIUM 4.1 mmol/L (3.5-5.1); SODIUM SERUM 142 mmol/L (136-145); THYROID STIMULATING HORMONE 1.29 uIU/mL (0.36-3.74); TOTAL PROTEIN, SERUM 7.3 g/dL (6.4-8.2); TRIGLYCERIDES 54 mg/dL (15-150); UREA NITROGEN, BLOOD 26 mg/dL (7-18)
[2018-03-29 12:32] LABS: DIGOXIN < 0.20 ng/mL (0.90-2.00)
[2018-03-29 12:38] LABS: HEMOGLOBIN A1C 5.7 % (4.5-6.2)
== END | disposition home or self-care (01) ==
LOC: LABPV 09:45
PROVIDERS: ATTEND Internal Medicine Cardiovascular Disease
DX: I11.0 Hypertensive heart disease with heart failure (principal); I50.9 Heart failure, unspecified; E11.8 Type 2 diabetes mellitus with unspecified complications; D56.5 Hemoglobin E-beta thalassemia; Z79.899 Other long term (current) drug therapy
CPT/HCPCS: 82306; 83036; 83735; 84439; 84443

== ENCOUNTER 2018-05-24 13:05 | Emergency (ER) | payer MEDICARE, OTHER ==
[~2018-05-24] VITALS: Ht 160 cm; Wt 50.0 kg
[2018-05-24] MEDS ORDERED: RANO500T3 PO (13:11)
[2018-05-24] MEDS ORDERED: KDUR10 PO (13:11)
[2018-05-24] MEDS ORDERED: ACETAMINOPHEN 500 MG TABLET PO ONE (15:45)
[2018-05-24] MEDS ORDERED: PERTUSS(ACELL),DIPH,TET VAC/PF 0.5 ML VIAL IM ONE (16:00)
[2018-05-24 18:48] VITALS: BP 139/83
== END 2018-05-24 18:58 | disposition home or self-care (01) ==
LOC: EMS 13:06
DX: S61.411A Laceration without foreign body of right hand, initial encounter (principal); I10 Essential (primary) hypertension; J44.9 Chronic obstructive pulmonary disease, unspecified; I25.2 Old myocardial infarction; Z87.891 Personal history of nicotine dependence; Z79.899 Other long term (current) drug therapy; Z79.82 Long term (current) use of aspirin; Z88.8 Allergy status to other drugs, medicaments and biological substances; Z88.5 Allergy status to narcotic agent; W22.8XXA Striking against or struck by other objects, initial encounter; Y93.89 Activity, other specified; Y92.89 Other specified places as the place of occurrence of the external cause; Y99.8 Other external cause status
CPT/HCPCS: 12001; 90471; 90715; 99283

== ENCOUNTER → 2018-06-02 | Outpatient (CLI) | payer MEDICARE ==
[~2018-06-02] MED LIST changes: -DONE5TAB5 PO; +KDUR10 PO; -PRED20 PO; +RANO500T3 PO; -VITAD1000 PO
[2018-06-02 11:45] LABS: BASOPHILS % (AUTO) 1.4 % (0.0-2.0); EOSINOPHILS % (AUTO) 2.9 % (1.0-6.0); HEMATOCRIT 44.4 % (36-46); LYMPHOCYTES # (AUTO) 1.4 K/uL (1.0-4.8); LYMPHOCYTES % (AUTO) 22.8 % (22.0-44.0); MEAN CORPUSCULAR HEMOGLOBIN 30.3 pg (26.0-34.0); MEAN CORPUSCULAR HGB CONC 33.7 G/dL (31.0-37.0); MEAN CORPUSCULAR VOLUME 90 fL (80-100); MONOCYTES # (AUTO) 0.5 K/uL (0.1-1.0); MONOCYTES % (AUTO) 7.8 % (2.0-9.0); NEUTROPHILS # (AUTO) 4.1 K/uL (1.8-7.7); NEUTROPHILS % (AUTO) 65.1 % (40.0-70.0); PLATELET COUNT (AUTO) 244 K/uL (150-450); RED BLOOD CELL COUNT(AUTO) 4.94 MIL/uL (4.00-5.20); RED CELL DISTRIBUTION WIDTH 13.2 % (11.5-14.5)
[2018-06-02 12:30] LABS: ALANINE AMINOTRANSFERASE 27 U/L (12-78); ALBUMIN 3.5 g/dL (3.4-5.0); ALKALINE PHOSPHATASE 75 U/L (46-116); ANION GAP 4 mmol/L (8-16); ASPARTATE AMINOTRANSFERASE 21 U/L (15-37); BILIRUBIN,TOTAL 0.7 mg/dL (0.1-1.0); CALCIUM, TOTAL 8.9 mg/dL (8.8-10.5); CARBON DIOXIDE 33 mmol/L (22-29); CHLORIDE 105 mmol/L (98-107); CHOL/HDL RATIO 2.8 (3.9-5.7); CHOLESTEROL 187 mg/dL (131-200); FREE T4 (FREE THYROXINE) 1.01 ng/dL (0.76-1.46); GLOMERULAR FILTR. RATE CALC > 60 mL/min (>60); GLUCOSE,RANDOM 90 mg/dL (70-110); HDL CHOLESTEROL 67 mg/dL (40-60); LDL CHOL (CALC.) 106 mg/dL (0-130); POTASSIUM 4.1 mmol/L (3.5-5.1); SODIUM SERUM 142 mmol/L (136-145); THYROID STIMULATING HORMONE 1.49 uIU/mL (0.36-3.74); TOTAL PROTEIN, SERUM 6.3 g/dL (6.4-8.2); TRIGLYCERIDES 69 mg/dL (15-150); UREA NITROGEN, BLOOD 26 mg/dL (7-18)
[2018-06-02 12:43] LABS: HEMOGLOBIN A1C 5.2 % (4.5-6.2)
[2018-06-02 12:47] LABS: DIGOXIN < 0.20 ng/mL (0.90-2.00)
== END | disposition home or self-care (01) ==
LOC: LABPV 09:26
PROVIDERS: ATTEND Internal Medicine Cardiovascular Disease
DX: I11.0 Hypertensive heart disease with heart failure (principal); I50.9 Heart failure, unspecified; E11.8 Type 2 diabetes mellitus with unspecified complications; E55.9 Vitamin D deficiency, unspecified; D56.5 Hemoglobin E-beta thalassemia; J43.9 Emphysema, unspecified; I25.10 Atherosclerotic heart disease of native coronary artery without angina pectoris
CPT/HCPCS: 82306; 83036; 83735; 84439; 84443

== ENCOUNTER → 2018-06-09 | Outpatient (CLI) | payer MEDICARE ==
[2018-06-09 12:39] LABS: EOSINOPHILS % (AUTO) 1.3 % (1.0-6.0); HEMATOCRIT 42.9 % (36-46); HEMOGLOBIN 14.4 g/dL (12.0-16.0); LYMPHOCYTES # (AUTO) 1.2 K/uL (1.0-4.8); LYMPHOCYTES % (AUTO) 17.8 % (22.0-44.0); MEAN CORPUSCULAR HEMOGLOBIN 30.3 pg (26.0-34.0); MEAN CORPUSCULAR HGB CONC 33.6 G/dL (31.0-37.0); MEAN CORPUSCULAR VOLUME 90 fL (80-100); MONOCYTES # (AUTO) 0.6 K/uL (0.1-1.0); MONOCYTES % (AUTO) 8.1 % (2.0-9.0); NEUTROPHILS % (AUTO) 71.8 % (40.0-70.0); PLATELET COUNT (AUTO) 216 K/uL (150-450); RED BLOOD CELL COUNT(AUTO) 4.75 MIL/uL (4.00-5.20); RED CELL DISTRIBUTION WIDTH 12.8 % (11.5-14.5)
[2018-06-09 12:48] LABS: HEMOGLOBIN A1C 5.2 % (4.5-6.2)
[2018-06-09 12:55] LABS: ALBUMIN 3.6 g/dL (3.4-5.0); BILIRUBIN,TOTAL 0.6 mg/dL (0.1-1.0); CALCIUM, TOTAL 9.2 mg/dL (8.8-10.5); CHOL/HDL RATIO 2.3 (3.9-5.7); CREATININE 0.93 mg/dL (0.60-1.30); FREE T4 (FREE THYROXINE) 1.03 ng/dL (0.76-1.46); MAGNESIUM 1.9 mg/dL (1.80-2.40); POTASSIUM 3.8 mmol/L (3.5-5.1); THYROID STIMULATING HORMONE 1.08 uIU/mL (0.36-3.74); TOTAL PROTEIN, SERUM 6.3 g/dL (6.4-8.2)
== END | disposition home or self-care (01) ==
LOC: LABPV 10:17
PROVIDERS: ATTEND Internal Medicine Cardiovascular Disease
DX: I13.0 Hypertensive heart and chronic kidney disease with heart failure and stage 1 through stage 4 chronic kidney disease, or unspecified chronic kidney disease (principal); I50.9 Heart failure, unspecified; E55.9 Vitamin D deficiency, unspecified; E11.65 Type 2 diabetes mellitus with hyperglycemia; M81.0 Age-related osteoporosis without current pathological fracture; E78.5 Hyperlipidemia, unspecified; E78.00 Pure hypercholesterolemia, unspecified; Z79.01 Long term (current) use of anticoagulants; F41.9 Anxiety disorder, unspecified; F32.9 Major depressive disorder, single episode, unspecified; J44.1 Chronic obstructive pulmonary disease with (acute) exacerbation; E11.22 Type 2 diabetes mellitus with diabetic chronic kidney disease; N18.9 Chronic kidney disease, unspecified; Z87.891 Personal history of nicotine dependence
CPT/HCPCS: 82306; 83036; 83735; 84439; 84443

== ENCOUNTER 2018-11-15 15:27 | Emergency (ER) | payer MEDICARE ==
[~2018-11-15] VITALS: Ht 154.9 cm; Wt 50.0 kg
[~2018-11-15 15:27] MED LIST changes: +BUDE180H IH; -BUDE180H PO
[2018-11-15] MEDS ORDERED: LIDOCAINE 1% 10 ML VIAL ONE ×2 (17:27→18:15)
[2018-11-15] MEDS ORDERED: PERTUSS(ACELL),DIPH,TET VAC/PF 0.5 ML VIAL IM ONE (17:30)
[2018-11-15] MEDS ORDERED: SLOWK8 PO (17:32)
[2018-11-15] MEDS ORDERED: ATOR20TA86 PO (17:32)
[2018-11-15] MEDS ORDERED: BACITRACIN 0.9 GM PACKET OINTMENT TP ONE (19:00)
[2018-11-15 19:48] VITALS: BP 145/72
== END 2018-11-15 19:58 | disposition home or self-care (01) ==
LOC: EMS 15:28
DX: S81.811A Laceration without foreign body, right lower leg, initial encounter (principal); I25.10 Atherosclerotic heart disease of native coronary artery without angina pectoris; I11.9 Hypertensive heart disease without heart failure; J44.9 Chronic obstructive pulmonary disease, unspecified; I25.2 Old myocardial infarction; Z90.710 Acquired absence of both cervix and uterus; Z87.891 Personal history of nicotine dependence; Z79.82 Long term (current) use of aspirin; Z88.5 Allergy status to narcotic agent; Z88.8 Allergy status to other drugs, medicaments and biological substances; Z91.041 Radiographic dye allergy status; W19.XXXA Unspecified fall, initial encounter; Y93.89 Activity, other specified; Y92.89 Other specified places as the place of occurrence of the external cause; Y99.8 Other external cause status
CPT/HCPCS: 12005; 90471; 90715; 99283; J3490

== ENCOUNTER → 2018-12-31 | Outpatient (CLI) | payer MEDICARE ==
[~2018-12-31] MED LIST changes: +ATOR20TA86 PO; -ATOR40TA28 PO; -CLOP75 PO; +CLOP75TA17 PO; -KDUR10 PO; +SLOWK8 PO
[2018-12-31 14:57] LABS: BASOPHILS % (AUTO) 1.3 % (0.0-2.0); EOSINOPHILS % (AUTO) 1.2 % (1.0-6.0); HEMATOCRIT 38.2 % (36-46); HEMOGLOBIN 12.6 g/dL (12.0-16.0); LYMPHOCYTES # (AUTO) 1.3 K/uL (1.0-4.8); LYMPHOCYTES % (AUTO) 15.6 % (22.0-44.0); MEAN CORPUSCULAR HEMOGLOBIN 30.1 pg (26.0-34.0); MEAN CORPUSCULAR HGB CONC 32.9 G/dL (31.0-37.0); MEAN CORPUSCULAR VOLUME 92 fL (80-100); MONOCYTES # (AUTO) 0.6 K/uL (0.1-1.0); MONOCYTES % (AUTO) 7.7 % (2.0-9.0); NEUTROPHILS # (AUTO) 6.1 K/uL (1.8-7.7); NEUTROPHILS % (AUTO) 74.2 % (40.0-70.0); PLATELET COUNT (AUTO) 329 K/uL (150-450); RED BLOOD CELL COUNT(AUTO) 4.17 MIL/uL (4.00-5.20)
[2018-12-31 15:09] LABS: HEMOGLOBIN A1C 5.6 % (4.5-6.2)
[2018-12-31 15:24] LABS: ALANINE AMINOTRANSFERASE 13 U/L (12-78); ALKALINE PHOSPHATASE 77 U/L (46-116); ANION GAP 1 mmol/L (8-16); ASPARTATE AMINOTRANSFERASE 17 U/L (15-37); BILIRUBIN,TOTAL 0.5 mg/dL (0.1-1.0); CALCIUM, TOTAL 9.1 mg/dL (8.8-10.5); CARBON DIOXIDE 34 mmol/L (22-29); CHLORIDE 107 mmol/L (98-107); CHOL/HDL RATIO 2.9 (3.9-5.7); CHOLESTEROL 190 mg/dL (131-200); CREATININE 0.73 mg/dL (0.60-1.30); GLUCOSE,RANDOM 93 mg/dL (70-110); HDL CHOLESTEROL 65 mg/dL (40-60); LDL CHOL (CALC.) 105 mg/dL (0-130); POTASSIUM 4.1 mmol/L (3.5-5.1); SODIUM SERUM 142 mmol/L (136-145); THYROID STIMULATING HORMONE 0.94 uIU/mL (0.36-3.74); TOTAL PROTEIN, SERUM 6.3 g/dL (6.4-8.2); TRIGLYCERIDES 98 mg/dL (15-150); UREA NITROGEN, BLOOD 20 mg/dL (7-18)
[2018-12-31 15:25] LABS: GLOMERULAR FILTR. RATE CALC > 60 mL/min (>60)
[2018-12-31 15:57] LABS: DIGOXIN < 0.20 ng/mL (0.90-2.00)
== END | disposition home or self-care (01) ==
LOC: LABPV 14:36
PROVIDERS: ATTEND Internal Medicine Cardiovascular Disease
DX: E55.9 Vitamin D deficiency, unspecified (principal); I13.0 Hypertensive heart and chronic kidney disease with heart failure and stage 1 through stage 4 chronic kidney disease, or unspecified chronic kidney disease; E11.22 Type 2 diabetes mellitus with diabetic chronic kidney disease; N18.9 Chronic kidney disease, unspecified; I50.9 Heart failure, unspecified; D56.5 Hemoglobin E-beta thalassemia
CPT/HCPCS: 82306; 83036; 83735; 84439; 84443

== ENCOUNTER 2019-01-13 16:37 | Inpatient (IN) | payer MEDICARE ==
[~2019-01-13] VITALS: Ht 160 cm; Wt 53.3 kg
[~2019-01-13 16:37] MED LIST changes: -CLOP75TA17 PO; +CLOP75TA3 PO
[2019-01-13] MEDS ORDERED: MORPHINE SULFATE 2 MG/ML SYRINGE IVP ONE (18:15)
[2019-01-13 18:30] LABS: BASOPHILS % (AUTO) 0.4 % (0.0-2.0); EOSINOPHILS % (AUTO) 0 % (1.0-6.0); HEMATOCRIT 38.4 % (36-46); HEMOGLOBIN 12.3 g/dL (12.0-16.0); LYMPHOCYTES # (AUTO) 0.7 K/uL (1.0-4.8); LYMPHOCYTES % (AUTO) 5.1 % (22.0-44.0); MEAN CORPUSCULAR HEMOGLOBIN 29.4 pg (26.0-34.0); MEAN CORPUSCULAR HGB CONC 32.1 G/dL (31.0-37.0); MEAN CORPUSCULAR VOLUME 91 fL (80-100); MONOCYTES # (AUTO) 0.6 K/uL (0.1-1.0); MONOCYTES % (AUTO) 4.3 % (2.0-9.0); NEUTROPHILS # (AUTO) 12.3 K/uL (1.8-7.7); PLATELET COUNT (AUTO) 285 K/uL (150-450); RED CELL DISTRIBUTION WIDTH 15.5 % (11.5-14.5)
[2019-01-13 18:31] LABS: NEUTROPHILS % (AUTO) 90.2 % (40.0-70.0)
[2019-01-13 18:47] LABS: ANION GAP 7 mmol/L (8-16); CALCIUM, TOTAL 9.2 mg/dL (8.8-10.5); CARBON DIOXIDE 32 mmol/L (22-29); CHLORIDE 107 mmol/L (98-107); CREATININE 0.72 mg/dL (0.60-1.30); GLOMERULAR FILTR. RATE CALC > 60 mL/min (>60); GLUCOSE,RANDOM 107 mg/dL (70-110); POTASSIUM 3.6 mmol/L (3.5-5.1); SODIUM SERUM 146 mmol/L (136-145); UREA NITROGEN, BLOOD 23 mg/dL (7-18)
[2019-01-13 18:52] LABS: ALANINE AMINOTRANSFERASE 27 U/L (12-78); ALBUMIN 3.3 g/dL (3.4-5.0); ALKALINE PHOSPHATASE 90 U/L (46-116); ASPARTATE AMINOTRANSFERASE 23 U/L (15-37); BILIRUBIN,TOTAL 0.3 mg/dL (0.1-1.0); TOTAL PROTEIN, SERUM 6.7 g/dL (6.4-8.2)
[2019-01-13] MEDS ORDERED: LORazepam 2 MG/ML VIAL IVP ONE (20:30)
[2019-01-13] MEDS ORDERED: MAGNESIUM HYDROXIDE SUSPENSION 30 ML UDCUP PO PRN (20:45)
[2019-01-13] MEDS ORDERED: ALBUTEROL SULFATE 2.5 MG/0.5 ML NEB SOLUTION NEB PRN (20:45)
[2019-01-13] MEDS ORDERED: ACETAMINOPHEN 325 MG TABLET PO PRN (20:45)
[2019-01-13] MEDS: DOCUSATE SODIUM 100 MG CAPSULE PO SCH (21:00)
[2019-01-13] MEDS: DEXTROSE 5%-0.45% SODIUM CHL 1,000 ML IV SCH (21:09)
[2019-01-13 21:44] LABS: APPEARANCE,URINE CLEAR (CLEAR); BILIRUBIN,URINE NEGATIVE (NEGATIVE); GLUCOSE, URINE (UA) NEGATIVE (NEGATIVE); KETONES,URINE NEGATIVE (NEGATIVE); LEUKOCYTE ESTERASE ,URINE SMALL (NEGATIVE); NITRATE,URINE NEGATIVE (NEGATIVE); OCCULT BLOOD,URINE SMALL (NEGATIVE); PH,URINE 7.5 (5.0-8.0); PROTEIN,URINE NEGATIVE (NEGATIVE); UROBILINOGEN,URINE 0.2 mg/dL (<=1.0)
[2019-01-13 22:03] LABS: BACTERIA,URINE Moderate /HPF (None Seen); RBC,URINE 0-2 /HPF (0-2); WBC,URINE 0-2 /HPF (0-5)
[2019-01-13 22:04] LABS: SQUAMOUS EPITHELIAL CELL,UR Few /LPF (None Seen)
[2019-01-13 23:16] VITALS: BP 111/47
[2019-01-13] MEDS: HEPARIN SODIUM,PORCINE 5,000 UNITS/ML VIAL SQ SCH (23:46)
[2019-01-14 04:18] VITALS: BP 142/73
[2019-01-14 06:08] LABS: BASOPHILS % (AUTO) 0.6 % (0.0-2.0); EOSINOPHILS % (AUTO) 0.1 % (1.0-6.0); HEMATOCRIT 34.9 % (36-46); HEMOGLOBIN 11.4 g/dL (12.0-16.0); LYMPHOCYTES # (AUTO) 1.2 K/uL (1.0-4.8); LYMPHOCYTES % (AUTO) 13.1 % (22.0-44.0); MEAN CORPUSCULAR HEMOGLOBIN 29.9 pg (26.0-34.0); MEAN CORPUSCULAR HGB CONC 32.7 G/dL (31.0-37.0); MEAN CORPUSCULAR VOLUME 92 fL (80-100); MONOCYTES # (AUTO) 0.9 K/uL (0.1-1.0); NEUTROPHILS # (AUTO) 7.3 K/uL (1.8-7.7); NEUTROPHILS % (AUTO) 77.2 % (40.0-70.0); PLATELET COUNT (AUTO) 237 K/uL (150-450); RED BLOOD CELL COUNT(AUTO) 3.81 MIL/uL (4.00-5.20); RED CELL DISTRIBUTION WIDTH 14.5 % (11.5-14.5)
[2019-01-14 06:24] LABS: ANION GAP 6 mmol/L (8-16); CALCIUM, TOTAL 8.8 mg/dL (8.8-10.5); CARBON DIOXIDE 31 mmol/L (22-29); CHLORIDE 105 mmol/L (98-107); CREATININE 0.61 mg/dL (0.60-1.30); GLUCOSE,RANDOM 103 mg/dL (70-110); POTASSIUM 3.8 mmol/L (3.5-5.1); SODIUM SERUM 142 mmol/L (136-145); UREA NITROGEN, BLOOD 15 mg/dL (7-18)
[2019-01-14 06:48] LABS: GLOMERULAR FILTR. RATE CALC > 60 mL/min (>60)
[2019-01-14 07:54] VITALS: BP 150/84
[2019-01-14] MEDS: HEPARIN SODIUM,PORCINE 5,000 UNITS/ML VIAL SQ SCH ×2 (08:00→16:00)
[2019-01-14] MEDS ORDERED: FAMOTIDINE 20 MG TABLET PO SCH (09:00)
[2019-01-14] MEDS: DOCUSATE SODIUM 100 MG CAPSULE PO SCH ×2 (09:00→20:26)
[2019-01-14 11:10] VITALS: BP 135/69
[2019-01-14] MEDS: DEXTROSE 5%-0.45% SODIUM CHL 1,000 ML IV SCH (14:10)
[2019-01-14 15:14] VITALS: BP 145/77
[2019-01-14] MEDS ORDERED: MORPHINE SULFATE 2 MG/ML SYRINGE IVP PRN (16:45)
[2019-01-14 19:45] VITALS: BP 153/77
[2019-01-15 00:08] VITALS: BP 142/80
[2019-01-15] MEDS: DEXTROSE 5%-0.45% SODIUM CHL 1,000 ML IV SCH ×3 (00:27→20:19)
[2019-01-15 04:09] VITALS: BP 140/76
[2019-01-15 07:24] LABS: BASOPHILS % (AUTO) 0.6 % (0.0-2.0); EOSINOPHILS % (AUTO) 1.3 % (1.0-6.0); HEMATOCRIT 39.7 % (36-46); HEMOGLOBIN 13.2 g/dL (12.0-16.0); LYMPHOCYTES # (AUTO) 1.1 K/uL (1.0-4.8); LYMPHOCYTES % (AUTO) 11.8 % (22.0-44.0); MEAN CORPUSCULAR HEMOGLOBIN 30.1 pg (26.0-34.0); MEAN CORPUSCULAR HGB CONC 33.3 G/dL (31.0-37.0); MEAN CORPUSCULAR VOLUME 90 fL (80-100); MONOCYTES # (AUTO) 0.8 K/uL (0.1-1.0); MONOCYTES % (AUTO) 9.1 % (2.0-9.0); NEUTROPHILS % (AUTO) 77.2 % (40.0-70.0); PLATELET COUNT (AUTO) 227 K/uL (150-450); RED BLOOD CELL COUNT(AUTO) 4.39 MIL/uL (4.00-5.20); RED CELL DISTRIBUTION WIDTH 14.3 % (11.5-14.5)
[2019-01-15] MEDS ORDERED: MEPERIDINE-PF 25 MG/ML VIAL IVP PRN (07:30)
[2019-01-15] MEDS ORDERED: FentaNYL CITRATE-PF 100 MCG/2 ML VIAL IVP PRN (07:30)
[2019-01-15] MEDS ORDERED: HYDROmorphone 2 MG/ML SYRINGE IVP PRN (07:30)
[2019-01-15 07:39] VITALS: BP 141/80
[2019-01-15 07:39] LABS: ANION GAP 4 mmol/L (8-16); CARBON DIOXIDE 32 mmol/L (22-29); CHLORIDE 101 mmol/L (98-107); CREATININE 0.57 mg/dL (0.60-1.30); GLUCOSE,RANDOM 113 mg/dL (70-110); POTASSIUM 3.2 mmol/L (3.5-5.1); SODIUM SERUM 137 mmol/L (136-145); UREA NITROGEN, BLOOD 8 mg/dL (7-18)
[2019-01-15 07:40] LABS: GLOMERULAR FILTR. RATE CALC > 60 mL/min (>60)
[2019-01-15] MEDS: HEPARIN SODIUM,PORCINE 5,000 UNITS/ML VIAL SQ SCH ×2 (08:00)
[2019-01-15] MEDS ORDERED: SODIUM CHLORIDE 0.9% 1,000 ML IV ONE ×3 (08:51→10:44)
[2019-01-15] MEDS ORDERED: RINGERS SOLUTION,LACTATED 2,000 ML IV ONE (08:53)
[2019-01-15] MEDS ORDERED: GUM MASTIC/STORAX/MSAL/ALCOHOL LIQUID 0.67 ML VIAL TP ONE (08:57)
[2019-01-15] MEDS ORDERED: MUPIROCIN CALCIUM 2% 22 GM OINTMENT ONE (08:57)
[2019-01-15] MEDS ORDERED: BUPIVACAINE HCL/PF 0.5% 30 ML VIAL ONE (08:58)
[2019-01-15] MEDS ORDERED: VANCOMYCIN HCL 1 GM/VIAL ONE (08:58)
[2019-01-15] MEDS ORDERED: MICROFIBRILLAR COLLAGEN 1 GM PACKAGE TP ONE (08:58)
[2019-01-15] MEDS ORDERED: SODIUM CL IRRIG SOLN BAG 3,000 ML IRRIG ONE (08:58)
[2019-01-15] MEDS: DOCUSATE SODIUM 100 MG CAPSULE PO SCH ×2 (09:00→20:18)
[2019-01-15] MEDS ORDERED: HEPARIN SODIUM 1000 UNITS/NS 500 ML ONE (09:15)
[2019-01-15] MEDS ORDERED: BUPIVACAINE LIPOSOME/PF 1.3%-13.3MG/ML SUSPENSION 20 ML VIAL INJ ONE (09:15)
[2019-01-15] MEDS ORDERED: TRANEXAMIC ACID 1,000 MG in DEXTROSE 5%-WATER 50 ML IV ONE (09:15)
[2019-01-15] MEDS ORDERED: ALBUTEROL SULFATE 2.5 MG/0.5 ML NEB SOLUTION NEB PRN (11:00)
[2019-01-15] MEDS ORDERED: ACETAMINOPHEN 325 MG TABLET PO PRN (11:00)
[2019-01-15] MEDS ORDERED: MEPERIDINE-PF 25 MG/ML VIAL ONE (11:42)
[2019-01-15] MEDS ORDERED: HYDROmorphone 2 MG/ML SYRINGE ONE (12:13)
[2019-01-15 13:00] VITALS: BP 111/69
[2019-01-15] MEDS: OXYGEN THERAPY IH SCH ×2 (13:26→20:18)
[2019-01-15 15:55] VITALS: BP 113/65
[2019-01-15] MEDS: ACETAMINOPHEN 1000 MG/ISO-OSM 100 ML IV SCH ×2 (17:05→20:43)
[2019-01-15] MEDS: CeFAZolin 1 GM/DEXTROSE 50 ML IV SCH ×2 (17:49→21:33)
[2019-01-15 20:09] VITALS: BP 112/66
[2019-01-15] MEDS: LORazepam 2 MG/ML VIAL IVP PRN (23:42)
[2019-01-16 00:02] VITALS: BP 125/64
[2019-01-16] MEDS: ACETAMINOPHEN 1000 MG/ISO-OSM 100 ML IV SCH ×3 (03:42→21:47)
[2019-01-16 04:08] VITALS: BP 132/59
[2019-01-16] MEDS ORDERED: PHENYLEPHRINE HCL 10 MG/ML VIAL IVP ONE (05:53)
[2019-01-16] MEDS ORDERED: SUCCINYLCHOLINE CHLORIDE 20 MG/ML 10 ML VIAL IVP ONE (05:53)
[2019-01-16] MEDS ORDERED: FentaNYL CITRATE-PF 100 MCG/2 ML VIAL IVP ONE (05:53)
[2019-01-16] MEDS ORDERED: LIDOCAINE/PF 2% 5 ML VIAL IM ONE (05:53)
[2019-01-16] MEDS ORDERED: ROCURONIUM BROMIDE 10 MG/ML 5 ML VIAL IVP ONE (05:53)
[2019-01-16] MEDS ORDERED: PROPOFOL 1% 20 ML VIAL IVP ONE (05:53)
[2019-01-16] MEDS ORDERED: EPHEDrine SULFATE 50 MG/ML VIAL IM ONE (05:53)
[2019-01-16] MEDS ORDERED: MIDAZOLAM HCL 2 MG/2 ML VIAL IVP ONE (05:53)
[2019-01-16 06:01] LABS: BASOPHILS % (AUTO) 0.5 % (0.0-2.0); EOSINOPHILS % (AUTO) 2.8 % (1.0-6.0); HEMATOCRIT 33.9 % (36-46); HEMOGLOBIN 11.3 g/dL (12.0-16.0); LYMPHOCYTES # (AUTO) 0.9 K/uL (1.0-4.8); MEAN CORPUSCULAR HEMOGLOBIN 30.1 pg (26.0-34.0); MEAN CORPUSCULAR HGB CONC 33.3 G/dL (31.0-37.0); MEAN CORPUSCULAR VOLUME 90 fL (80-100); MONOCYTES # (AUTO) 0.9 K/uL (0.1-1.0); MONOCYTES % (AUTO) 10.6 % (2.0-9.0); NEUTROPHILS # (AUTO) 6.2 K/uL (1.8-7.7); NEUTROPHILS % (AUTO) 75.1 % (40.0-70.0); PLATELET COUNT (AUTO) 204 K/uL (150-450); RED BLOOD CELL COUNT(AUTO) 3.75 MIL/uL (4.00-5.20); RED CELL DISTRIBUTION WIDTH 14.8 % (11.5-14.5)
[2019-01-16] MEDS: DEXTROSE 5%-0.45% SODIUM CHL 1,000 ML IV SCH ×2 (06:06→17:24)
[2019-01-16 06:20] LABS: ANION GAP 3 mmol/L (8-16); CALCIUM, TOTAL 8.3 mg/dL (8.8-10.5); CARBON DIOXIDE 30 mmol/L (22-29); CHLORIDE 103 mmol/L (98-107); CREATININE 0.78 mg/dL (0.60-1.30); GLUCOSE,RANDOM 118 mg/dL (70-110); POTASSIUM 3.6 mmol/L (3.5-5.1); SODIUM SERUM 136 mmol/L (136-145); UREA NITROGEN, BLOOD 14 mg/dL (7-18)
[2019-01-16 06:32] LABS: GLOMERULAR FILTR. RATE CALC > 60 mL/min (>60)
[2019-01-16 07:43] VITALS: BP 141/77
[2019-01-16] MEDS: FAMOTIDINE 20 MG TABLET PO SCH (09:19)
[2019-01-16] MEDS: DOCUSATE SODIUM 100 MG CAPSULE PO SCH ×2 (09:19→21:00)
[2019-01-16] MEDS: MAGNESIUM HYDROXIDE SUSPENSION 30 ML UDCUP PO PRN (09:19)
[2019-01-16] MEDS: ENOXAPARIN SODIUM 30 MG/0.3 ML PF SYRINGE SQ SCH ×2 (09:20→21:43)
[2019-01-16] MEDS: OXYGEN THERAPY IH SCH ×2 (09:20→20:00)
[2019-01-16 11:37] VITALS: BP 132/73
[2019-01-16 15:48] VITALS: BP 138/65
[2019-01-16] MEDS: LORazepam 2 MG/ML VIAL IVP PRN (20:00)
[2019-01-16 20:35] VITALS: BP 149/86
[2019-01-17 01:23] VITALS: BP 134/71
[2019-01-17] MEDS ORDERED: ACETAMINOPHEN 1000 MG/ISO-OSM 100 ML IV SCH (01:35)
[2019-01-17] MEDS: DEXTROSE 5%-0.45% SODIUM CHL 1,000 ML IV SCH ×3 (01:37→21:10)
[2019-01-17] MEDS: ACETAMINOPHEN 1000 MG/ISO-OSM 100 ML IV SCH ×4 (01:38→22:46)
[2019-01-17 06:14] VITALS: BP 137/79
[2019-01-17] MEDS: ENOXAPARIN SODIUM 30 MG/0.3 ML PF SYRINGE SQ SCH ×2 (08:36→21:01)
[2019-01-17] MEDS: DOCUSATE SODIUM 100 MG CAPSULE PO SCH ×2 (08:36→21:01)
[2019-01-17] MEDS: MULTIVITAMINS WITH MINERALS, THERAPEUTIC TABLET PO SCH (08:36)
[2019-01-17] MEDS: OXYGEN THERAPY IH SCH ×2 (08:36→21:01)
[2019-01-17] MEDS: FAMOTIDINE 20 MG TABLET PO SCH (08:36)
[2019-01-17 09:58] LABS: BASOPHILS % (AUTO) 0.7 % (0.0-2.0); EOSINOPHILS % (AUTO) 1.9 % (1.0-6.0); HEMATOCRIT 35.2 % (36-46); HEMOGLOBIN 11.7 g/dL (12.0-16.0); LYMPHOCYTES # (AUTO) 1.1 K/uL (1.0-4.8); MEAN CORPUSCULAR HEMOGLOBIN 30.3 pg (26.0-34.0); MEAN CORPUSCULAR HGB CONC 33.2 G/dL (31.0-37.0); MEAN CORPUSCULAR VOLUME 91 fL (80-100); MONOCYTES # (AUTO) 0.8 K/uL (0.1-1.0); NEUTROPHILS # (AUTO) 7.4 K/uL (1.8-7.7); NEUTROPHILS % (AUTO) 77.4 % (40.0-70.0); PLATELET COUNT (AUTO) 253 K/uL (150-450); RED BLOOD CELL COUNT(AUTO) 3.86 MIL/uL (4.00-5.20); RED CELL DISTRIBUTION WIDTH 14.3 % (11.5-14.5)
[2019-01-17 10:10] LABS: ANION GAP -1 mmol/L (8-16); CALCIUM, TOTAL 8.6 mg/dL (8.8-10.5); CARBON DIOXIDE 32 mmol/L (22-29); CHLORIDE 105 mmol/L (98-107); CREATININE 0.55 mg/dL (0.60-1.30); GLUCOSE,RANDOM 129 mg/dL (70-110); PHOSPHORUS 1.7 mg/dL (2.5-4.9); POTASSIUM 3.5 mmol/L (3.5-5.1); SODIUM SERUM 136 mmol/L (136-145); UREA NITROGEN, BLOOD 11 mg/dL (7-18)
[2019-01-17 10:19] LABS: GLOMERULAR FILTR. RATE CALC > 60 mL/min (>60)
[2019-01-17 11:20] VITALS: BP 127/73
[2019-01-17] MEDS: LORazepam 2 MG/ML VIAL IVP PRN (14:55)
[2019-01-17 15:44] VITALS: BP 150/77
[2019-01-17] MEDS: ATORVASTATIN CALCIUM 10 MG TABLET PO SCH (18:28)
[2019-01-17] MEDS: ASPIRIN 81 MG EC TABLET PO SCH (18:28)
[2019-01-17 19:57] VITALS: BP 134/61
[2019-01-17] MEDS: MAGNESIUM HYDROXIDE SUSPENSION 30 ML UDCUP PO PRN (21:01)
[2019-01-17 23:36] VITALS: BP 120/59
[2019-01-18 04:26] VITALS: BP 137/80
[2019-01-18] MEDS: ACETAMINOPHEN 1000 MG/ISO-OSM 100 ML IV SCH ×3 (04:32→16:38)
[2019-01-18] MEDS: LORazepam 2 MG/ML VIAL IVP PRN ×2 (05:07→09:31)
[2019-01-18 06:59] LABS: BASOPHILS % (AUTO) 0.9 % (0.0-2.0); EOSINOPHILS % (AUTO) 3.1 % (1.0-6.0); HEMATOCRIT 32.7 % (36-46); HEMOGLOBIN 10.8 g/dL (12.0-16.0); LYMPHOCYTES # (AUTO) 1.1 K/uL (1.0-4.8); LYMPHOCYTES % (AUTO) 12.7 % (22.0-44.0); MEAN CORPUSCULAR HEMOGLOBIN 30.2 pg (26.0-34.0); MEAN CORPUSCULAR HGB CONC 33.1 G/dL (31.0-37.0); MEAN CORPUSCULAR VOLUME 92 fL (80-100); MONOCYTES # (AUTO) 0.8 K/uL (0.1-1.0); MONOCYTES % (AUTO) 9.2 % (2.0-9.0); NEUTROPHILS # (AUTO) 6.3 K/uL (1.8-7.7); NEUTROPHILS % (AUTO) 74.1 % (40.0-70.0); PLATELET COUNT (AUTO) 244 K/uL (150-450); RED BLOOD CELL COUNT(AUTO) 3.58 MIL/uL (4.00-5.20); RED CELL DISTRIBUTION WIDTH 14.5 % (11.5-14.5)
[2019-01-18 07:23] VITALS: BP 130/80
[2019-01-18 07:29] LABS: ALANINE AMINOTRANSFERASE 21 U/L (12-78); ALBUMIN 1.9 g/dL (3.4-5.0); ALKALINE PHOSPHATASE 83 U/L (46-116); ANION GAP 0 mmol/L (8-16); ASPARTATE AMINOTRANSFERASE 29 U/L (15-37); BILIRUBIN,TOTAL 0.4 mg/dL (0.1-1.0); CALCIUM, TOTAL 8.5 mg/dL (8.8-10.5); CARBON DIOXIDE 34 mmol/L (22-29); CHLORIDE 105 mmol/L (98-107); CREATININE 0.74 mg/dL (0.60-1.30); GLUCOSE,RANDOM 117 mg/dL (70-110); POTASSIUM 4.2 mmol/L (3.5-5.1); SODIUM SERUM 139 mmol/L (136-145); TOTAL PROTEIN, SERUM 4.5 g/dL (6.4-8.2); UREA NITROGEN, BLOOD 13 mg/dL (7-18)
[2019-01-18 07:30] LABS: GLOMERULAR FILTR. RATE CALC > 60 mL/min (>60)
[2019-01-18] MEDS: MAGNESIUM HYDROXIDE SUSPENSION 30 ML UDCUP PO PRN (08:37)
[2019-01-18] MEDS: MULTIVITAMINS WITH MINERALS, THERAPEUTIC TABLET PO SCH (08:38)
[2019-01-18] MEDS: ENOXAPARIN SODIUM 30 MG/0.3 ML PF SYRINGE SQ SCH (08:38)
[2019-01-18] MEDS: DOCUSATE SODIUM 100 MG CAPSULE PO SCH (08:38)
[2019-01-18] MEDS: ATORVASTATIN CALCIUM 10 MG TABLET PO SCH (08:38)
[2019-01-18] MEDS: ASPIRIN 81 MG EC TABLET PO SCH (08:38)
[2019-01-18] MEDS: FAMOTIDINE 20 MG TABLET PO SCH (08:38)
[2019-01-18] MEDS: OXYGEN THERAPY IH SCH (08:39)
[2019-01-18] MEDS: DEXTROSE 5%-0.45% SODIUM CHL 1,000 ML IV SCH (08:40)
[2019-01-18 11:26] VITALS: BP 128/68
[2019-01-18] MEDS ORDERED: DSS100 PO (14:57)
[2019-01-18] MEDS ORDERED: BISACODYL 10 MG RECTAL RECTAL SUPPOSITORY PR ONE (15:00)
[2019-01-18] MEDS ORDERED: TRAM50TA4 PO (15:00)
[2019-01-18] MEDS ORDERED: ENOX30DI5 SQ (15:05)
[2019-01-18 15:55] VITALS: BP 132/74
== END 2019-01-18 18:58 | DRG 469 ==
LOC: EMS 16:38 → 5N 21:13
PROVIDERS: ADMIT Internal Medicine; ATTEND Internal Medicine
PROC: 0MBM0ZZ Excision of Left Hip Bursa and Ligament, Open Approach (ICD-10-PCS; 2019-01-15)
PROC: 0SCB0ZZ Extirpation of Matter from Left Hip Joint, Open Approach (ICD-10-PCS; 2019-01-15)
PROC: 0S9B0ZZ Drainage of Left Hip Joint, Open Approach (ICD-10-PCS; 2019-01-15)
PROC: 0SRS0JZ Replacement of Left Hip Joint, Femoral Surface with Synthetic Substitute, Open Approach (ICD-10-PCS; principal; 2019-01-15 10:25)
DX: M80.052A Age-related osteoporosis with current pathological fracture, left femur, initial encounter for fracture (principal); E43 Unspecified severe protein-calorie malnutrition; Z68.1 Body mass index [BMI] 19.9 or less, adult; M25.052 Hemarthrosis, left hip; W18.30XA Fall on same level, unspecified, initial encounter; F03.90 Unspecified dementia, unspecified severity, without behavioral disturbance, psychotic disturbance, mood disturbance, and anxiety; I25.10 Atherosclerotic heart disease of native coronary artery without angina pectoris; D64.9 Anemia, unspecified; E78.5 Hyperlipidemia, unspecified; R29.6 Repeated falls; W07.XXXA Fall from chair, initial encounter; E86.0 Dehydration; J44.9 Chronic obstructive pulmonary disease, unspecified; F41.9 Anxiety disorder, unspecified; I10 Essential (primary) hypertension; S70.02XA Contusion of left hip, initial encounter; I25.2 Old myocardial infarction; Z87.891 Personal history of nicotine dependence; Z90.710 Acquired absence of both cervix and uterus; Z95.5 Presence of coronary angioplasty implant and graft; Z99.81 Dependence on supplemental oxygen; Z88.8 Allergy status to other drugs, medicaments and biological substances; Z88.6 Allergy status to analgesic agent; Z91.041 Radiographic dye allergy status; Z79.899 Other long term (current) drug therapy; Y93.89 Activity, other specified; Y99.8 Other external cause status; Y92.098 Other place in other non-institutional residence as the place of occurrence of the external cause; Z68.20 Body mass index [BMI] 20.0-20.9, adult
CPT/HCPCS: 70450; 72170; 73503; 73552; 83735; 84100; 87081; 87086; 88304; 88311; 92610; 93005; 93306; 96374; 96375; 97162; 97530; C9290; G0378; J0131; J0330; J0690; J1170; J1644; J1650; J2060; J2175; J2250; J2270; J2370; J2704; J3010; J3370; J3490; J7030; J7060; J7120

== ENCOUNTER 2019-04-25 14:04 | Emergency (ER) | payer MEDICARE, MEDICAID ==
[~2019-04-25] VITALS: Ht 157.5 cm; Wt 40.9 kg
[~2019-04-25 14:04] MED LIST changes: +DSS100 PO; +ENOX30DI5 SQ; +TRAM50TA4 PO
[2019-04-25 17:20] VITALS: BP 147/85
== END 2019-04-25 17:24 | disposition home or self-care (01) ==
LOC: EMS 14:06
DX: S81.801A Unspecified open wound, right lower leg, initial encounter (principal); I25.10 Atherosclerotic heart disease of native coronary artery without angina pectoris; I11.0 Hypertensive heart disease with heart failure; I50.9 Heart failure, unspecified; I25.2 Old myocardial infarction; J44.9 Chronic obstructive pulmonary disease, unspecified; Z79.899 Other long term (current) drug therapy; Z88.5 Allergy status to narcotic agent; Z91.041 Radiographic dye allergy status; Z88.8 Allergy status to other drugs, medicaments and biological substances; Z87.891 Personal history of nicotine dependence; Z90.710 Acquired absence of both cervix and uterus; X58.XXXA Exposure to other specified factors, initial encounter; Y93.89 Activity, other specified; Y92.89 Other specified places as the place of occurrence of the external cause; Y99.8 Other external cause status

== ENCOUNTER → 2019-05-09 | Outpatient (CLI) | payer MEDICARE, MEDICAID ==
[~2019-05-09] VITALS: Ht 167.6 cm; Wt 46.0 kg
[2019-05-09 10:45] VITALS: BP 139/90
== END | disposition home or self-care (01) ==
LOC: HBOWC 10:23
PROVIDERS: ATTEND Surgery Plastic and Reconstructive Surgery
DX: S81.801D Unspecified open wound, right lower leg, subsequent encounter (principal); J44.9 Chronic obstructive pulmonary disease, unspecified; I11.0 Hypertensive heart disease with heart failure; I50.9 Heart failure, unspecified; I25.2 Old myocardial infarction; Z90.710 Acquired absence of both cervix and uterus; Z79.899 Other long term (current) drug therapy; Z87.891 Personal history of nicotine dependence; X58.XXXD Exposure to other specified factors, subsequent encounter
CPT/HCPCS: 11042

== ENCOUNTER 2019-05-17 18:35 | Emergency (ER) | payer MEDICARE, OTHER ==
[~2019-05-17] VITALS: Ht 157.5 cm; Wt 40.9 kg
[2019-05-17 19:00] VITALS: BP 144/99
[2019-05-20] MEDS ORDERED: FURO20 PO (15:17)
[2019-05-20] MEDS ORDERED: METO-558 PO (15:17)
[2019-05-20] MEDS ORDERED: DIGO-44 PO (15:17)
[2019-05-20] MEDS ORDERED: VITAD1000 PO (15:17)
[2019-05-20] MEDS ORDERED: DILT-39 PO (15:17)
[2019-05-20] MEDS ORDERED: CINA30 PO (15:17)
[2019-05-20] MEDS ORDERED: ROFL500T PO (15:17)
[2019-05-20] MEDS ORDERED: NITR0.4T52 SL (15:17)
[2019-05-20] MEDS ORDERED: ACET-2744 PO ×2 (15:17)
[2019-05-20] MEDS ORDERED: DONE5TAB5 PO (15:17)
== END 2019-05-17 19:22 | disposition home or self-care (01) ==
LOC: EMS 18:36
DX: Z48.00 Encounter for change or removal of nonsurgical wound dressing (principal); I11.0 Hypertensive heart disease with heart failure; I50.9 Heart failure, unspecified; J44.9 Chronic obstructive pulmonary disease, unspecified; I25.2 Old myocardial infarction; Z90.710 Acquired absence of both cervix and uterus; Z87.891 Personal history of nicotine dependence; Z88.8 Allergy status to other drugs, medicaments and biological substances; Z88.5 Allergy status to narcotic agent; Z91.041 Radiographic dye allergy status; Z79.82 Long term (current) use of aspirin

== ENCOUNTER 2019-05-18 17:59 | Emergency (ER) | payer MEDICARE, OTHER ==
[~2019-05-18] VITALS: Ht 152.4 cm; Wt 40.9 kg
[2019-05-18 20:28] VITALS: BP 139/62
[2019-05-20] MEDS ORDERED: METO-558 PO (15:17)
[2019-05-20] MEDS ORDERED: VITAD1000 PO (15:17)
[2019-05-20] MEDS ORDERED: CINA30 PO (15:17)
[2019-05-20] MEDS ORDERED: DIGO-44 PO (15:17)
[2019-05-20] MEDS ORDERED: NITR0.4T52 SL (15:17)
[2019-05-20] MEDS ORDERED: DILT-39 PO (15:17)
[2019-05-20] MEDS ORDERED: ROFL500T PO (15:17)
[2019-05-20] MEDS ORDERED: ACET-2744 PO ×2 (15:17)
[2019-05-20] MEDS ORDERED: DONE5TAB5 PO (15:17)
[2019-05-20] MEDS ORDERED: FURO20 PO (15:17)
== END 2019-05-18 21:07 | disposition home or self-care (01) ==
LOC: EMS 18:03
DX: Z48.00 Encounter for change or removal of nonsurgical wound dressing (principal); I11.0 Hypertensive heart disease with heart failure; I50.9 Heart failure, unspecified; J44.9 Chronic obstructive pulmonary disease, unspecified; I25.2 Old myocardial infarction; Z88.5 Allergy status to narcotic agent; Z88.8 Allergy status to other drugs, medicaments and biological substances; Z79.82 Long term (current) use of aspirin; Z79.899 Other long term (current) drug therapy; Z91.041 Radiographic dye allergy status; Z87.891 Personal history of nicotine dependence

== ENCOUNTER 2019-05-19 12:17 | Emergency (ER) | payer MEDICARE, OTHER ==
[~2019-05-19] VITALS: Ht 167.6 cm; Wt 45.5 kg
[2019-05-19 12:26] VITALS: BP 149/97
[2019-05-19] MEDS ORDERED: DOXYCYCLINE HYCLATE 100 MG CAPSULE PO ONE (12:45)
[2019-05-20] MEDS ORDERED: DILT-39 PO (15:17)
[2019-05-20] MEDS ORDERED: ROFL500T PO (15:17)
[2019-05-20] MEDS ORDERED: FURO20 PO (15:17)
[2019-05-20] MEDS ORDERED: ACET-2744 PO ×2 (15:17)
[2019-05-20] MEDS ORDERED: NITR0.4T52 SL (15:17)
[2019-05-20] MEDS ORDERED: DONE5TAB5 PO (15:17)
[2019-05-20] MEDS ORDERED: DIGO-44 PO (15:17)
[2019-05-20] MEDS ORDERED: VITAD1000 PO (15:17)
[2019-05-20] MEDS ORDERED: CINA30 PO (15:17)
[2019-05-20] MEDS ORDERED: METO-558 PO (15:17)
== END 2019-05-19 13:34 | disposition home or self-care (01) ==
LOC: EMS 12:19
DX: L03.115 Cellulitis of right lower limb (principal); I25.10 Atherosclerotic heart disease of native coronary artery without angina pectoris; I11.0 Hypertensive heart disease with heart failure; I50.9 Heart failure, unspecified; I25.2 Old myocardial infarction; J44.9 Chronic obstructive pulmonary disease, unspecified; F03.90 Unspecified dementia, unspecified severity, without behavioral disturbance, psychotic disturbance, mood disturbance, and anxiety; Z87.891 Personal history of nicotine dependence; Z90.710 Acquired absence of both cervix and uterus; Z79.899 Other long term (current) drug therapy; Z79.82 Long term (current) use of aspirin; Z88.5 Allergy status to narcotic agent; Z91.041 Radiographic dye allergy status; Z88.8 Allergy status to other drugs, medicaments and biological substances

== ENCOUNTER → 2019-05-23 | Outpatient (CLI) | payer MEDICARE, OTHER ==
[~2019-05-23] MED LIST changes: +ACET-2744 PO; +CINA30 PO; +DIGO-44 PO; +DILT-39 PO; +DONE5TAB5 PO; -ENOX30DI5 SQ; +FURO20 PO; +LIDOCAINE 2% 5 ML JELLY TP ONE; +METO-558 PO; +NITR0.4T52 SL; +ROFL500T PO; +VITAD1000 PO
[2019-05-23 10:12] VITALS: BP 133/81
== END | disposition home or self-care (01) ==
LOC: HBOWC 08:00
PROVIDERS: ATTEND Surgery Plastic and Reconstructive Surgery
DX: S81.801D Unspecified open wound, right lower leg, subsequent encounter (principal); I73.89 Other specified peripheral vascular diseases; J44.9 Chronic obstructive pulmonary disease, unspecified; I11.0 Hypertensive heart disease with heart failure; I50.9 Heart failure, unspecified; I25.10 Atherosclerotic heart disease of native coronary artery without angina pectoris; I25.2 Old myocardial infarction; F03.90 Unspecified dementia, unspecified severity, without behavioral disturbance, psychotic disturbance, mood disturbance, and anxiety; Z87.891 Personal history of nicotine dependence; Z79.899 Other long term (current) drug therapy; Z79.82 Long term (current) use of aspirin; Z90.710 Acquired absence of both cervix and uterus; X58.XXXD Exposure to other specified factors, subsequent encounter
CPT/HCPCS: 11042

== ENCOUNTER → 2019-06-02 | Outpatient (CLI) | payer MEDICARE, OTHER ==
[~2019-06-02] MED LIST changes: -LIDOCAINE 2% 5 ML JELLY TP ONE
[2019-06-02 10:40] VITALS: BP 124/69
== END | disposition home or self-care (01) ==
LOC: HBOWC 09:57
PROVIDERS: ATTEND Nurse Practitioner Adult Health
DX: L97.811 Non-pressure chronic ulcer of other part of right lower leg limited to breakdown of skin (principal); I87.2 Venous insufficiency (chronic) (peripheral); L60.2 Onychogryphosis; I73.89 Other specified peripheral vascular diseases; J44.9 Chronic obstructive pulmonary disease, unspecified; I11.0 Hypertensive heart disease with heart failure; I50.9 Heart failure, unspecified; I25.10 Atherosclerotic heart disease of native coronary artery without angina pectoris; I25.2 Old myocardial infarction; F03.90 Unspecified dementia, unspecified severity, without behavioral disturbance, psychotic disturbance, mood disturbance, and anxiety; Z79.82 Long term (current) use of aspirin; Z90.710 Acquired absence of both cervix and uterus

== ENCOUNTER → 2019-06-09 | Outpatient (CLI) | payer MEDICARE, OTHER ==
[2019-06-09 09:25] VITALS: BP 145/89
== END | disposition home or self-care (01) ==
LOC: HBOWC 09:55
PROVIDERS: ATTEND Nurse Practitioner Adult Health
DX: L97.811 Non-pressure chronic ulcer of other part of right lower leg limited to breakdown of skin (principal); I87.2 Venous insufficiency (chronic) (peripheral); L60.2 Onychogryphosis; I11.0 Hypertensive heart disease with heart failure; I50.9 Heart failure, unspecified; I73.89 Other specified peripheral vascular diseases; J44.9 Chronic obstructive pulmonary disease, unspecified; I25.10 Atherosclerotic heart disease of native coronary artery without angina pectoris; I25.2 Old myocardial infarction; F03.90 Unspecified dementia, unspecified severity, without behavioral disturbance, psychotic disturbance, mood disturbance, and anxiety; Z87.891 Personal history of nicotine dependence; Z79.82 Long term (current) use of aspirin; Z90.710 Acquired absence of both cervix and uterus

== ENCOUNTER → 2019-06-16 | Outpatient (CLI) | payer MEDICARE, OTHER ==
[2019-06-16 10:41] VITALS: BP 118/60
== END | disposition home or self-care (01) ==
LOC: HBOWC 09:40
PROVIDERS: ATTEND Nurse Practitioner Adult Health
DX: L97.811 Non-pressure chronic ulcer of other part of right lower leg limited to breakdown of skin (principal); I87.2 Venous insufficiency (chronic) (peripheral); L60.2 Onychogryphosis; I73.89 Other specified peripheral vascular diseases; J44.9 Chronic obstructive pulmonary disease, unspecified; I11.0 Hypertensive heart disease with heart failure; I50.9 Heart failure, unspecified; I25.10 Atherosclerotic heart disease of native coronary artery without angina pectoris; I25.2 Old myocardial infarction; F03.90 Unspecified dementia, unspecified severity, without behavioral disturbance, psychotic disturbance, mood disturbance, and anxiety; Z87.891 Personal history of nicotine dependence; Z90.710 Acquired absence of both cervix and uterus; Z79.82 Long term (current) use of aspirin

== ENCOUNTER → 2019-06-23 | Outpatient (CLI) | payer MEDICARE, OTHER ==
[~2019-06-23] MED LIST changes: -DIGO-44 PO; +DIGO125T84 PO
[2019-06-23 09:15] VITALS: BP 150/80
== END | disposition home or self-care (01) ==
LOC: HBOWC 08:54
PROVIDERS: ATTEND Nurse Practitioner Adult Health
DX: L97.811 Non-pressure chronic ulcer of other part of right lower leg limited to breakdown of skin (principal); I87.2 Venous insufficiency (chronic) (peripheral); L60.2 Onychogryphosis; I11.0 Hypertensive heart disease with heart failure; I50.9 Heart failure, unspecified; J44.9 Chronic obstructive pulmonary disease, unspecified; I73.89 Other specified peripheral vascular diseases; I25.10 Atherosclerotic heart disease of native coronary artery without angina pectoris; I25.2 Old myocardial infarction; F03.90 Unspecified dementia, unspecified severity, without behavioral disturbance, psychotic disturbance, mood disturbance, and anxiety; Z87.891 Personal history of nicotine dependence; Z79.82 Long term (current) use of aspirin; Z90.710 Acquired absence of both cervix and uterus

== ENCOUNTER → 2019-06-30 | Outpatient (CLI) | payer MEDICARE, OTHER ==
[~2019-06-30] MED LIST changes: +LIDOCAINE 2% 5 ML JELLY ONE
[2019-06-30 10:32] VITALS: BP 142/82
== END | disposition home or self-care (01) ==
LOC: HBOWC 10:09
PROVIDERS: ATTEND Nurse Practitioner Adult Health
DX: L97.811 Non-pressure chronic ulcer of other part of right lower leg limited to breakdown of skin (principal); I87.2 Venous insufficiency (chronic) (peripheral); I73.89 Other specified peripheral vascular diseases; L60.2 Onychogryphosis; I11.0 Hypertensive heart disease with heart failure; I50.9 Heart failure, unspecified; J44.9 Chronic obstructive pulmonary disease, unspecified; I25.10 Atherosclerotic heart disease of native coronary artery without angina pectoris; I25.2 Old myocardial infarction; F03.90 Unspecified dementia, unspecified severity, without behavioral disturbance, psychotic disturbance, mood disturbance, and anxiety; Z87.891 Personal history of nicotine dependence; Z79.82 Long term (current) use of aspirin; Z90.710 Acquired absence of both cervix and uterus

== ENCOUNTER → 2019-07-07 | Outpatient (CLI) | payer MEDICARE, OTHER ==
[~2019-07-07] MED LIST changes: -LIDOCAINE 2% 5 ML JELLY ONE
[2019-07-07 09:25] VITALS: BP 119/52
== END | disposition home or self-care (01) ==
LOC: HBOWC 08:50
PROVIDERS: ATTEND Nurse Practitioner Adult Health
DX: L97.811 Non-pressure chronic ulcer of other part of right lower leg limited to breakdown of skin (principal); I87.2 Venous insufficiency (chronic) (peripheral); I73.89 Other specified peripheral vascular diseases; L60.2 Onychogryphosis; I11.0 Hypertensive heart disease with heart failure; I50.9 Heart failure, unspecified; J44.9 Chronic obstructive pulmonary disease, unspecified; I25.10 Atherosclerotic heart disease of native coronary artery without angina pectoris; I25.2 Old myocardial infarction; F03.90 Unspecified dementia, unspecified severity, without behavioral disturbance, psychotic disturbance, mood disturbance, and anxiety; Z87.891 Personal history of nicotine dependence; Z79.82 Long term (current) use of aspirin; Z90.710 Acquired absence of both cervix and uterus

== ENCOUNTER → 2019-07-14 | Outpatient (CLI) | payer MEDICARE, OTHER ==
[~2019-07-14] MED LIST changes: +CHOL100018 PO; -VITAD1000 PO
[2019-07-14 10:58] VITALS: BP 127/63
== END | disposition home or self-care (01) ==
LOC: HBOWC 10:31
PROVIDERS: ATTEND Nurse Practitioner Adult Health
DX: L97.811 Non-pressure chronic ulcer of other part of right lower leg limited to breakdown of skin (principal); I87.2 Venous insufficiency (chronic) (peripheral); I73.89 Other specified peripheral vascular diseases; I11.0 Hypertensive heart disease with heart failure; I50.9 Heart failure, unspecified; J44.9 Chronic obstructive pulmonary disease, unspecified; I25.10 Atherosclerotic heart disease of native coronary artery without angina pectoris; I25.2 Old myocardial infarction; F03.90 Unspecified dementia, unspecified severity, without behavioral disturbance, psychotic disturbance, mood disturbance, and anxiety; Z90.710 Acquired absence of both cervix and uterus; Z87.891 Personal history of nicotine dependence; Z79.82 Long term (current) use of aspirin; Z79.899 Other long term (current) drug therapy

== ENCOUNTER → 2019-07-21 | Outpatient (CLI) | payer MEDICARE, OTHER ==
[~2019-07-21] MED LIST changes: +LIDOCAINE 2% 5 ML JELLY TP ONE
[2019-07-21 10:09] VITALS: BP 150/70
== END | disposition home or self-care (01) ==
LOC: HBOWC 09:18
PROVIDERS: ATTEND Nurse Practitioner Adult Health
DX: L97.811 Non-pressure chronic ulcer of other part of right lower leg limited to breakdown of skin (principal); I87.2 Venous insufficiency (chronic) (peripheral); I73.89 Other specified peripheral vascular diseases; I11.0 Hypertensive heart disease with heart failure; I50.9 Heart failure, unspecified; J44.9 Chronic obstructive pulmonary disease, unspecified; I25.10 Atherosclerotic heart disease of native coronary artery without angina pectoris; I25.2 Old myocardial infarction; F03.90 Unspecified dementia, unspecified severity, without behavioral disturbance, psychotic disturbance, mood disturbance, and anxiety; Z90.710 Acquired absence of both cervix and uterus; Z87.891 Personal history of nicotine dependence; Z79.82 Long term (current) use of aspirin; Z79.899 Other long term (current) drug therapy

== ENCOUNTER → 2019-07-29 | Outpatient (CLI) | payer MEDICARE, OTHER ==
[~2019-07-29] MED LIST changes: -LIDOCAINE 2% 5 ML JELLY TP ONE
[2019-07-29 10:57] VITALS: BP 144/82
== END | disposition home or self-care (01) ==
LOC: HBOWC 09:47
PROVIDERS: ATTEND Podiatrist
DX: L97.812 Non-pressure chronic ulcer of other part of right lower leg with fat layer exposed (principal); I87.2 Venous insufficiency (chronic) (peripheral); I73.89 Other specified peripheral vascular diseases; I11.0 Hypertensive heart disease with heart failure; I50.9 Heart failure, unspecified; J44.9 Chronic obstructive pulmonary disease, unspecified; I25.10 Atherosclerotic heart disease of native coronary artery without angina pectoris; I25.2 Old myocardial infarction; F03.90 Unspecified dementia, unspecified severity, without behavioral disturbance, psychotic disturbance, mood disturbance, and anxiety; L60.2 Onychogryphosis; Z90.710 Acquired absence of both cervix and uterus; Z87.891 Personal history of nicotine dependence; Z79.82 Long term (current) use of aspirin; Z79.899 Other long term (current) drug therapy
CPT/HCPCS: 11042

== ENCOUNTER → 2019-08-04 | Outpatient (CLI) | payer MEDICARE, OTHER ==
[2019-08-04 10:58] VITALS: BP 145/72
== END | disposition home or self-care (01) ==
LOC: HBOWC 09:47
PROVIDERS: ATTEND Nurse Practitioner Adult Health
DX: L97.812 Non-pressure chronic ulcer of other part of right lower leg with fat layer exposed (principal); I87.2 Venous insufficiency (chronic) (peripheral); I73.89 Other specified peripheral vascular diseases; I11.0 Hypertensive heart disease with heart failure; I50.9 Heart failure, unspecified; J44.9 Chronic obstructive pulmonary disease, unspecified; I25.10 Atherosclerotic heart disease of native coronary artery without angina pectoris; I25.2 Old myocardial infarction; F03.90 Unspecified dementia, unspecified severity, without behavioral disturbance, psychotic disturbance, mood disturbance, and anxiety; L60.2 Onychogryphosis; Z90.710 Acquired absence of both cervix and uterus; Z87.891 Personal history of nicotine dependence; Z79.82 Long term (current) use of aspirin; Z79.899 Other long term (current) drug therapy

== ENCOUNTER 2019-08-07 17:54 | Emergency (ER) | payer MEDICARE, OTHER ==
[~2019-08-07] VITALS: Ht 167.6 cm; Wt 45.0 kg
[2019-08-07 18:00] VITALS: BP 160/97
== END 2019-08-07 20:00 | disposition left against medical advice (07) ==
LOC: EMS 17:55
DX: M79.601 Pain in right arm (principal); Z53.21 Procedure and treatment not carried out due to patient leaving prior to being seen by health care provider

== ENCOUNTER → 2019-08-11 | Outpatient (CLI) | payer MEDICARE, OTHER ==
[2019-08-11 09:30] VITALS: BP 150/80
== END | disposition home or self-care (01) ==
LOC: HBOWC 09:11
PROVIDERS: ATTEND Nurse Practitioner Adult Health
DX: L97.812 Non-pressure chronic ulcer of other part of right lower leg with fat layer exposed (principal); I87.2 Venous insufficiency (chronic) (peripheral); I73.89 Other specified peripheral vascular diseases; I11.0 Hypertensive heart disease with heart failure; I50.9 Heart failure, unspecified; J44.9 Chronic obstructive pulmonary disease, unspecified; I25.10 Atherosclerotic heart disease of native coronary artery without angina pectoris; I25.2 Old myocardial infarction; F03.90 Unspecified dementia, unspecified severity, without behavioral disturbance, psychotic disturbance, mood disturbance, and anxiety; L60.2 Onychogryphosis; Z90.710 Acquired absence of both cervix and uterus; Z87.891 Personal history of nicotine dependence; Z79.82 Long term (current) use of aspirin; Z79.899 Other long term (current) drug therapy

== ENCOUNTER → 2019-08-19 | Outpatient (CLI) | payer MEDICARE, OTHER ==
[2019-08-19 10:39] VITALS: BP 142/90
== END | disposition home or self-care (01) ==
LOC: HBOWC 09:39
PROVIDERS: ATTEND Podiatrist
DX: L97.811 Non-pressure chronic ulcer of other part of right lower leg limited to breakdown of skin (principal); S41.111D Laceration without foreign body of right upper arm, subsequent encounter; S81.812D Laceration without foreign body, left lower leg, subsequent encounter; I87.2 Venous insufficiency (chronic) (peripheral); I73.89 Other specified peripheral vascular diseases; I11.0 Hypertensive heart disease with heart failure; I50.9 Heart failure, unspecified; J44.9 Chronic obstructive pulmonary disease, unspecified; I25.10 Atherosclerotic heart disease of native coronary artery without angina pectoris; I25.2 Old myocardial infarction; F03.90 Unspecified dementia, unspecified severity, without behavioral disturbance, psychotic disturbance, mood disturbance, and anxiety; L60.2 Onychogryphosis; Z90.710 Acquired absence of both cervix and uterus; Z87.891 Personal history of nicotine dependence; Z79.82 Long term (current) use of aspirin; Z79.899 Other long term (current) drug therapy; X58.XXXD Exposure to other specified factors, subsequent encounter

== ENCOUNTER 2019-08-25 15:06 | Emergency (ER) | payer MEDICARE, OTHER ==
[~2019-08-25] VITALS: Ht 157.5 cm; Wt 40.9 kg
[2019-08-25 15:34] VITALS: BP 161/62
== END 2019-08-25 17:12 | disposition home or self-care (01) ==
LOC: EMS 15:11
DX: S41.111D Laceration without foreign body of right upper arm, subsequent encounter (principal); I11.0 Hypertensive heart disease with heart failure; I50.9 Heart failure, unspecified; I25.2 Old myocardial infarction; I25.10 Atherosclerotic heart disease of native coronary artery without angina pectoris; Z48.00 Encounter for change or removal of nonsurgical wound dressing; Z87.891 Personal history of nicotine dependence; Z91.041 Radiographic dye allergy status; Z88.8 Allergy status to other drugs, medicaments and biological substances; Z79.82 Long term (current) use of aspirin; Z79.899 Other long term (current) drug therapy; W22.01XD Walked into wall, subsequent encounter

== ENCOUNTER → 2019-09-01 | Outpatient (CLI) | payer MEDICARE, OTHER ==
[~2019-09-01] MED LIST changes: -ACET-2744 PO
== END | disposition home or self-care (01) ==
LOC: HBOWC 09:12
PROVIDERS: ATTEND Nurse Practitioner Adult Health
DX: L97.811 Non-pressure chronic ulcer of other part of right lower leg limited to breakdown of skin (principal); L97.821 Non-pressure chronic ulcer of other part of left lower leg limited to breakdown of skin; S41.111D Laceration without foreign body of right upper arm, subsequent encounter; I87.2 Venous insufficiency (chronic) (peripheral); I73.89 Other specified peripheral vascular diseases; I11.0 Hypertensive heart disease with heart failure; I50.9 Heart failure, unspecified; J44.9 Chronic obstructive pulmonary disease, unspecified; I25.10 Atherosclerotic heart disease of native coronary artery without angina pectoris; I25.2 Old myocardial infarction; F03.90 Unspecified dementia, unspecified severity, without behavioral disturbance, psychotic disturbance, mood disturbance, and anxiety; L60.2 Onychogryphosis; I73.9 Peripheral vascular disease, unspecified; Z90.710 Acquired absence of both cervix and uterus; Z87.891 Personal history of nicotine dependence; Z88.8 Allergy status to other drugs, medicaments and biological substances; Z79.82 Long term (current) use of aspirin; Z79.899 Other long term (current) drug therapy; X58.XXXD Exposure to other specified factors, subsequent encounter

== ENCOUNTER → 2019-09-08 | Outpatient (CLI) | payer MEDICARE, OTHER | END | disposition home or self-care (01) | LOC: HBOWC 09:01 | PROVIDERS: ATTEND Nurse Practitioner Adult Health | DX: L97.811 Non-pressure chronic ulcer of other part of right lower leg limited to breakdown of skin (principal); L97.821 Non-pressure chronic ulcer of other part of left lower leg limited to breakdown of skin; S41.111D Laceration without foreign body of right upper arm, subsequent encounter; I87.2 Venous insufficiency (chronic) (peripheral); I73.89 Other specified peripheral vascular diseases; I11.0 Hypertensive heart disease with heart failure; I50.9 Heart failure, unspecified; J44.9 Chronic obstructive pulmonary disease, unspecified; I25.10 Atherosclerotic heart disease of native coronary artery without angina pectoris; I25.2 Old myocardial infarction; F03.90 Unspecified dementia, unspecified severity, without behavioral disturbance, psychotic disturbance, mood disturbance, and anxiety; L60.2 Onychogryphosis; I73.9 Peripheral vascular disease, unspecified; Z90.710 Acquired absence of both cervix and uterus; Z87.891 Personal history of nicotine dependence; Z88.8 Allergy status to other drugs, medicaments and biological substances; Z79.82 Long term (current) use of aspirin; Z79.899 Other long term (current) drug therapy; X58.XXXD Exposure to other specified factors, subsequent encounter ==

== ENCOUNTER 2019-09-12 11:04 | Emergency (ER) | payer MEDICARE, OTHER ==
[~2019-09-12] VITALS: Ht 157.5 cm; Wt 45.5 kg
[2019-09-12] MEDS ORDERED: BACITRACIN 0.9 GM PACKET OINTMENT TP ONE (15:30)
[2019-09-12 15:59] VITALS: BP 155/72
== END 2019-09-12 16:04 | disposition home or self-care (01) ==
LOC: EMS 11:05
DX: R03.0 Elevated blood-pressure reading, without diagnosis of hypertension (principal); I11.0 Hypertensive heart disease with heart failure; I50.9 Heart failure, unspecified; I25.10 Atherosclerotic heart disease of native coronary artery without angina pectoris; J44.9 Chronic obstructive pulmonary disease, unspecified; I25.2 Old myocardial infarction; Z48.00 Encounter for change or removal of nonsurgical wound dressing; Z87.891 Personal history of nicotine dependence; Z90.710 Acquired absence of both cervix and uterus; Z79.82 Long term (current) use of aspirin; Z79.899 Other long term (current) drug therapy; Z88.5 Allergy status to narcotic agent; Z88.8 Allergy status to other drugs, medicaments and biological substances; Z91.041 Radiographic dye allergy status

== ENCOUNTER → 2019-09-22 | Outpatient (CLI) | payer MEDICARE, OTHER | END | disposition home or self-care (01) | LOC: HBOWC 08:27 | PROVIDERS: ATTEND Nurse Practitioner Adult Health | DX: L97.811 Non-pressure chronic ulcer of other part of right lower leg limited to breakdown of skin (principal); L97.821 Non-pressure chronic ulcer of other part of left lower leg limited to breakdown of skin; S41.111D Laceration without foreign body of right upper arm, subsequent encounter; I87.2 Venous insufficiency (chronic) (peripheral); I73.89 Other specified peripheral vascular diseases; I11.0 Hypertensive heart disease with heart failure; I50.9 Heart failure, unspecified; J44.9 Chronic obstructive pulmonary disease, unspecified; I25.10 Atherosclerotic heart disease of native coronary artery without angina pectoris; I25.2 Old myocardial infarction; F03.90 Unspecified dementia, unspecified severity, without behavioral disturbance, psychotic disturbance, mood disturbance, and anxiety; L60.2 Onychogryphosis; I73.9 Peripheral vascular disease, unspecified; Z90.710 Acquired absence of both cervix and uterus; Z87.891 Personal history of nicotine dependence; Z88.8 Allergy status to other drugs, medicaments and biological substances; Z79.82 Long term (current) use of aspirin; Z79.899 Other long term (current) drug therapy; X58.XXXD Exposure to other specified factors, subsequent encounter ==

== ENCOUNTER → 2019-09-29 | Outpatient (CLI) | payer MEDICARE, OTHER | END | disposition home or self-care (01) | LOC: HBOWC 08:25 | PROVIDERS: ATTEND Nurse Practitioner Adult Health | DX: L97.811 Non-pressure chronic ulcer of other part of right lower leg limited to breakdown of skin (principal); L97.821 Non-pressure chronic ulcer of other part of left lower leg limited to breakdown of skin; S41.111D Laceration without foreign body of right upper arm, subsequent encounter; I87.2 Venous insufficiency (chronic) (peripheral); I73.89 Other specified peripheral vascular diseases; I11.0 Hypertensive heart disease with heart failure; I50.9 Heart failure, unspecified; J44.9 Chronic obstructive pulmonary disease, unspecified; I25.10 Atherosclerotic heart disease of native coronary artery without angina pectoris; I25.2 Old myocardial infarction; F03.90 Unspecified dementia, unspecified severity, without behavioral disturbance, psychotic disturbance, mood disturbance, and anxiety; L60.2 Onychogryphosis; I73.9 Peripheral vascular disease, unspecified; Z90.710 Acquired absence of both cervix and uterus; Z87.891 Personal history of nicotine dependence; Z88.8 Allergy status to other drugs, medicaments and biological substances; Z79.82 Long term (current) use of aspirin; Z79.899 Other long term (current) drug therapy; X58.XXXD Exposure to other specified factors, subsequent encounter ==

== ENCOUNTER → 2019-10-03 | Outpatient (CLI) | payer MEDICARE, OTHER | END | disposition home or self-care (01) | LOC: HBOWC 09:45 | PROVIDERS: ATTEND Surgery Plastic and Reconstructive Surgery | DX: L97.811 Non-pressure chronic ulcer of other part of right lower leg limited to breakdown of skin (principal); L97.821 Non-pressure chronic ulcer of other part of left lower leg limited to breakdown of skin; S41.111D Laceration without foreign body of right upper arm, subsequent encounter; I87.2 Venous insufficiency (chronic) (peripheral); I73.89 Other specified peripheral vascular diseases; I11.0 Hypertensive heart disease with heart failure; I50.9 Heart failure, unspecified; J44.9 Chronic obstructive pulmonary disease, unspecified; I25.10 Atherosclerotic heart disease of native coronary artery without angina pectoris; I25.2 Old myocardial infarction; F03.90 Unspecified dementia, unspecified severity, without behavioral disturbance, psychotic disturbance, mood disturbance, and anxiety; L60.2 Onychogryphosis; I73.9 Peripheral vascular disease, unspecified; Z90.710 Acquired absence of both cervix and uterus; Z87.891 Personal history of nicotine dependence; Z88.8 Allergy status to other drugs, medicaments and biological substances; Z79.82 Long term (current) use of aspirin; Z79.899 Other long term (current) drug therapy; X58.XXXD Exposure to other specified factors, subsequent encounter ==

== ENCOUNTER → 2019-10-13 | Outpatient (CLI) | payer MEDICARE, OTHER | END | disposition home or self-care (01) | LOC: HBOWC 07:54 | PROVIDERS: ATTEND Nurse Practitioner Adult Health | DX: L97.811 Non-pressure chronic ulcer of other part of right lower leg limited to breakdown of skin (principal); S41.111D Laceration without foreign body of right upper arm, subsequent encounter; I87.2 Venous insufficiency (chronic) (peripheral); I73.89 Other specified peripheral vascular diseases; I11.0 Hypertensive heart disease with heart failure; I50.9 Heart failure, unspecified; J44.9 Chronic obstructive pulmonary disease, unspecified; I25.10 Atherosclerotic heart disease of native coronary artery without angina pectoris; I25.2 Old myocardial infarction; F03.90 Unspecified dementia, unspecified severity, without behavioral disturbance, psychotic disturbance, mood disturbance, and anxiety; L60.2 Onychogryphosis; I73.9 Peripheral vascular disease, unspecified; Z90.710 Acquired absence of both cervix and uterus; Z87.891 Personal history of nicotine dependence; Z88.8 Allergy status to other drugs, medicaments and biological substances; Z88.5 Allergy status to narcotic agent; Z79.82 Long term (current) use of aspirin; Z79.899 Other long term (current) drug therapy; X58.XXXD Exposure to other specified factors, subsequent encounter ==

== ENCOUNTER → 2019-10-20 | Outpatient (CLI) | payer MEDICARE, OTHER | END | disposition home or self-care (01) | LOC: HBOWC 07:59 | PROVIDERS: ATTEND Nurse Practitioner Adult Health | DX: L97.811 Non-pressure chronic ulcer of other part of right lower leg limited to breakdown of skin (principal); S41.111D Laceration without foreign body of right upper arm, subsequent encounter; I87.2 Venous insufficiency (chronic) (peripheral); I73.89 Other specified peripheral vascular diseases; I11.0 Hypertensive heart disease with heart failure; I50.9 Heart failure, unspecified; J44.9 Chronic obstructive pulmonary disease, unspecified; I25.10 Atherosclerotic heart disease of native coronary artery without angina pectoris; F03.90 Unspecified dementia, unspecified severity, without behavioral disturbance, psychotic disturbance, mood disturbance, and anxiety; L60.2 Onychogryphosis; I73.9 Peripheral vascular disease, unspecified; Z90.710 Acquired absence of both cervix and uterus; Z87.891 Personal history of nicotine dependence; Z88.8 Allergy status to other drugs, medicaments and biological substances; Z88.5 Allergy status to narcotic agent; Z79.82 Long term (current) use of aspirin; Z79.899 Other long term (current) drug therapy; X58.XXXD Exposure to other specified factors, subsequent encounter | CPT/HCPCS: 11720; 17250 ==

== ENCOUNTER 2019-10-22 16:39 | Emergency (ER) | payer MEDICARE, OTHER ==
[~2019-10-22] VITALS: Ht 165.1 cm; Wt 50.0 kg
[2019-10-22 16:43] VITALS: BP 111/91
== END 2019-10-22 17:55 | disposition home or self-care (01) ==
LOC: EMS 16:41
DX: S41.101A Unspecified open wound of right upper arm, initial encounter (principal); I25.10 Atherosclerotic heart disease of native coronary artery without angina pectoris; I11.0 Hypertensive heart disease with heart failure; I50.9 Heart failure, unspecified; I25.2 Old myocardial infarction; Z90.710 Acquired absence of both cervix and uterus; Z98.890 Other specified postprocedural states; Z87.891 Personal history of nicotine dependence; Z88.8 Allergy status to other drugs, medicaments and biological substances; Z88.5 Allergy status to narcotic agent; Z91.041 Radiographic dye allergy status; Z79.82 Long term (current) use of aspirin; X58.XXXA Exposure to other specified factors, initial encounter; Y93.89 Activity, other specified; Y92.89 Other specified places as the place of occurrence of the external cause; Y99.8 Other external cause status

== ENCOUNTER → 2019-10-27 | Outpatient (CLI) | payer MEDICARE, OTHER | END | disposition home or self-care (01) | LOC: HBOWC 07:56 | PROVIDERS: ATTEND Nurse Practitioner Adult Health | DX: L97.811 Non-pressure chronic ulcer of other part of right lower leg limited to breakdown of skin (principal); S41.111D Laceration without foreign body of right upper arm, subsequent encounter; I87.2 Venous insufficiency (chronic) (peripheral); I73.89 Other specified peripheral vascular diseases; I11.0 Hypertensive heart disease with heart failure; I50.9 Heart failure, unspecified; J44.9 Chronic obstructive pulmonary disease, unspecified; I25.10 Atherosclerotic heart disease of native coronary artery without angina pectoris; F03.90 Unspecified dementia, unspecified severity, without behavioral disturbance, psychotic disturbance, mood disturbance, and anxiety; L60.2 Onychogryphosis; I73.9 Peripheral vascular disease, unspecified; Z90.710 Acquired absence of both cervix and uterus; Z87.891 Personal history of nicotine dependence; Z88.8 Allergy status to other drugs, medicaments and biological substances; Z88.5 Allergy status to narcotic agent; Z79.82 Long term (current) use of aspirin; Z79.899 Other long term (current) drug therapy; X58.XXXD Exposure to other specified factors, subsequent encounter ==

== ENCOUNTER 2019-11-03 10:19 | Emergency (ER) | payer MEDICARE, OTHER ==
[~2019-11-03] VITALS: Ht 167.6 cm; Wt 50.0 kg
[2019-11-03 10:33] VITALS: BP 164/99
[2019-11-03] MEDS: PERTUSS(ACELL),DIPH,TET VAC/PF 0.5 ML VIAL IM ONE (12:11)
== END 2019-11-03 13:57 | disposition home or self-care (01) ==
LOC: EMS 10:21
DX: S51.812A Laceration without foreign body of left forearm, initial encounter (principal); I25.10 Atherosclerotic heart disease of native coronary artery without angina pectoris; I11.0 Hypertensive heart disease with heart failure; I50.9 Heart failure, unspecified; I25.2 Old myocardial infarction; J44.9 Chronic obstructive pulmonary disease, unspecified; F03.90 Unspecified dementia, unspecified severity, without behavioral disturbance, psychotic disturbance, mood disturbance, and anxiety; Z90.710 Acquired absence of both cervix and uterus; Z98.890 Other specified postprocedural states; Z87.891 Personal history of nicotine dependence; Z79.899 Other long term (current) drug therapy; Z88.5 Allergy status to narcotic agent; Z88.8 Allergy status to other drugs, medicaments and biological substances; Z91.041 Radiographic dye allergy status; W18.39XA Other fall on same level, initial encounter; Y93.01 Activity, walking, marching and hiking; Y92.89 Other specified places as the place of occurrence of the external cause; Y99.8 Other external cause status
CPT/HCPCS: 12002; 90471; 90715

== ENCOUNTER → 2019-11-07 | Outpatient (CLI) | payer MEDICARE, OTHER | END | disposition home or self-care (01) | LOC: HBOWC 07:55 | PROVIDERS: ATTEND Surgery Plastic and Reconstructive Surgery | DX: S41.112A Laceration without foreign body of left upper arm, initial encounter (principal); S41.111D Laceration without foreign body of right upper arm, subsequent encounter; I87.2 Venous insufficiency (chronic) (peripheral); I73.89 Other specified peripheral vascular diseases; I11.0 Hypertensive heart disease with heart failure; I50.9 Heart failure, unspecified; J44.9 Chronic obstructive pulmonary disease, unspecified; I25.10 Atherosclerotic heart disease of native coronary artery without angina pectoris; F03.90 Unspecified dementia, unspecified severity, without behavioral disturbance, psychotic disturbance, mood disturbance, and anxiety; L60.2 Onychogryphosis; I25.2 Old myocardial infarction; Z90.710 Acquired absence of both cervix and uterus; Z87.891 Personal history of nicotine dependence; Z88.8 Allergy status to other drugs, medicaments and biological substances; Z88.5 Allergy status to narcotic agent; Z79.82 Long term (current) use of aspirin; Z79.899 Other long term (current) drug therapy; W22.8XXA Striking against or struck by other objects, initial encounter; Y92.89 Other specified places as the place of occurrence of the external cause; Y99.8 Other external cause status; Y93.89 Activity, other specified ==

== ENCOUNTER → 2019-11-17 | Outpatient (CLI) | payer MEDICARE, OTHER | END | disposition home or self-care (01) | LOC: HBOWC 08:24 | PROVIDERS: ATTEND Surgery Plastic and Reconstructive Surgery | DX: S41.112D Laceration without foreign body of left upper arm, subsequent encounter (principal); S41.111D Laceration without foreign body of right upper arm, subsequent encounter; I87.2 Venous insufficiency (chronic) (peripheral); I73.89 Other specified peripheral vascular diseases; I11.0 Hypertensive heart disease with heart failure; I50.9 Heart failure, unspecified; J44.9 Chronic obstructive pulmonary disease, unspecified; I25.10 Atherosclerotic heart disease of native coronary artery without angina pectoris; F03.90 Unspecified dementia, unspecified severity, without behavioral disturbance, psychotic disturbance, mood disturbance, and anxiety; L60.2 Onychogryphosis; I25.2 Old myocardial infarction; Z90.710 Acquired absence of both cervix and uterus; Z88.8 Allergy status to other drugs, medicaments and biological substances; Z88.5 Allergy status to narcotic agent; Z79.82 Long term (current) use of aspirin; Z79.899 Other long term (current) drug therapy; W22.8XXD Striking against or struck by other objects, subsequent encounter ==

== ENCOUNTER → 2019-11-24 | Outpatient (CLI) | payer MEDICARE, OTHER | END | disposition home or self-care (01) | LOC: HBOWC 08:42 | PROVIDERS: ATTEND Nurse Practitioner Adult Health | DX: S41.112D Laceration without foreign body of left upper arm, subsequent encounter (principal); S41.111D Laceration without foreign body of right upper arm, subsequent encounter; I87.2 Venous insufficiency (chronic) (peripheral); I73.89 Other specified peripheral vascular diseases; I11.0 Hypertensive heart disease with heart failure; I50.9 Heart failure, unspecified; J44.9 Chronic obstructive pulmonary disease, unspecified; I25.10 Atherosclerotic heart disease of native coronary artery without angina pectoris; F03.90 Unspecified dementia, unspecified severity, without behavioral disturbance, psychotic disturbance, mood disturbance, and anxiety; L60.2 Onychogryphosis; I25.2 Old myocardial infarction; Z90.710 Acquired absence of both cervix and uterus; Z88.8 Allergy status to other drugs, medicaments and biological substances; Z88.5 Allergy status to narcotic agent; Z79.82 Long term (current) use of aspirin; Z79.899 Other long term (current) drug therapy; W22.8XXD Striking against or struck by other objects, subsequent encounter ==

== ENCOUNTER → 2019-12-01 | Outpatient (CLI) | payer MEDICARE, OTHER | END | disposition home or self-care (01) | LOC: HBOWC 09:51 | PROVIDERS: ATTEND Nurse Practitioner Adult Health | DX: S41.112D Laceration without foreign body of left upper arm, subsequent encounter (principal); S41.111D Laceration without foreign body of right upper arm, subsequent encounter; I87.2 Venous insufficiency (chronic) (peripheral); I73.89 Other specified peripheral vascular diseases; I11.0 Hypertensive heart disease with heart failure; I50.9 Heart failure, unspecified; J44.9 Chronic obstructive pulmonary disease, unspecified; I25.10 Atherosclerotic heart disease of native coronary artery without angina pectoris; F03.90 Unspecified dementia, unspecified severity, without behavioral disturbance, psychotic disturbance, mood disturbance, and anxiety; L60.2 Onychogryphosis; I25.2 Old myocardial infarction; Z90.710 Acquired absence of both cervix and uterus; Z88.8 Allergy status to other drugs, medicaments and biological substances; Z88.5 Allergy status to narcotic agent; Z79.82 Long term (current) use of aspirin; Z79.899 Other long term (current) drug therapy; W22.8XXD Striking against or struck by other objects, subsequent encounter ==

== ENCOUNTER → 2019-12-15 | Outpatient (CLI) | payer MEDICARE, OTHER | END | disposition home or self-care (01) | LOC: HBOWC 09:06 | PROVIDERS: ATTEND Nurse Practitioner Adult Health | DX: S51.812D Laceration without foreign body of left forearm, subsequent encounter (principal); S41.111D Laceration without foreign body of right upper arm, subsequent encounter; L97.821 Non-pressure chronic ulcer of other part of left lower leg limited to breakdown of skin; I87.2 Venous insufficiency (chronic) (peripheral); I11.0 Hypertensive heart disease with heart failure; I50.9 Heart failure, unspecified; J44.9 Chronic obstructive pulmonary disease, unspecified; I25.10 Atherosclerotic heart disease of native coronary artery without angina pectoris; F03.90 Unspecified dementia, unspecified severity, without behavioral disturbance, psychotic disturbance, mood disturbance, and anxiety; L60.2 Onychogryphosis; I25.2 Old myocardial infarction; I73.9 Peripheral vascular disease, unspecified; Z87.891 Personal history of nicotine dependence; Z90.710 Acquired absence of both cervix and uterus; Z88.8 Allergy status to other drugs, medicaments and biological substances; Z88.5 Allergy status to narcotic agent; Z79.82 Long term (current) use of aspirin; Z79.899 Other long term (current) drug therapy; W22.8XXD Striking against or struck by other objects, subsequent encounter ==

== ENCOUNTER → 2019-12-22 | Outpatient (CLI) | payer MEDICARE, OTHER | END | disposition home or self-care (01) | LOC: HBOWC 08:25 | PROVIDERS: ATTEND Nurse Practitioner Adult Health | DX: S51.812D Laceration without foreign body of left forearm, subsequent encounter (principal); S41.111D Laceration without foreign body of right upper arm, subsequent encounter; L97.821 Non-pressure chronic ulcer of other part of left lower leg limited to breakdown of skin; I87.2 Venous insufficiency (chronic) (peripheral); I11.0 Hypertensive heart disease with heart failure; I50.9 Heart failure, unspecified; J44.9 Chronic obstructive pulmonary disease, unspecified; I25.10 Atherosclerotic heart disease of native coronary artery without angina pectoris; F03.90 Unspecified dementia, unspecified severity, without behavioral disturbance, psychotic disturbance, mood disturbance, and anxiety; L60.2 Onychogryphosis; I25.2 Old myocardial infarction; I73.9 Peripheral vascular disease, unspecified; Z87.891 Personal history of nicotine dependence; Z90.710 Acquired absence of both cervix and uterus; Z88.8 Allergy status to other drugs, medicaments and biological substances; Z88.5 Allergy status to narcotic agent; Z79.82 Long term (current) use of aspirin; Z79.899 Other long term (current) drug therapy; W22.8XXD Striking against or struck by other objects, subsequent encounter ==

== ENCOUNTER → 2019-12-26 | Outpatient (CLI) | payer MEDICARE, OTHER | END | disposition home or self-care (01) | LOC: HBOWC 08:47 | PROVIDERS: ATTEND Surgery Plastic and Reconstructive Surgery | DX: S41.111D Laceration without foreign body of right upper arm, subsequent encounter (principal); S41.112D Laceration without foreign body of left upper arm, subsequent encounter; I87.2 Venous insufficiency (chronic) (peripheral); I73.89 Other specified peripheral vascular diseases; I11.0 Hypertensive heart disease with heart failure; I50.9 Heart failure, unspecified; J44.9 Chronic obstructive pulmonary disease, unspecified; I25.10 Atherosclerotic heart disease of native coronary artery without angina pectoris; F03.90 Unspecified dementia, unspecified severity, without behavioral disturbance, psychotic disturbance, mood disturbance, and anxiety; L60.2 Onychogryphosis; I25.2 Old myocardial infarction; Z90.710 Acquired absence of both cervix and uterus; Z88.8 Allergy status to other drugs, medicaments and biological substances; Z88.5 Allergy status to narcotic agent; Z87.891 Personal history of nicotine dependence; Z79.82 Long term (current) use of aspirin; Z79.899 Other long term (current) drug therapy; W22.8XXD Striking against or struck by other objects, subsequent encounter ==

== ENCOUNTER → 2019-12-29 | Outpatient (CLI) | payer MEDICARE, OTHER | END | disposition home or self-care (01) | LOC: HBOWC 08:28 | PROVIDERS: ATTEND Nurse Practitioner Adult Health | DX: S41.111D Laceration without foreign body of right upper arm, subsequent encounter (principal); S41.112D Laceration without foreign body of left upper arm, subsequent encounter; I87.2 Venous insufficiency (chronic) (peripheral); I73.89 Other specified peripheral vascular diseases; I11.0 Hypertensive heart disease with heart failure; I50.9 Heart failure, unspecified; J44.9 Chronic obstructive pulmonary disease, unspecified; I25.10 Atherosclerotic heart disease of native coronary artery without angina pectoris; F03.90 Unspecified dementia, unspecified severity, without behavioral disturbance, psychotic disturbance, mood disturbance, and anxiety; L60.2 Onychogryphosis; I25.2 Old myocardial infarction; Z90.710 Acquired absence of both cervix and uterus; Z88.8 Allergy status to other drugs, medicaments and biological substances; Z88.5 Allergy status to narcotic agent; Z87.891 Personal history of nicotine dependence; Z79.82 Long term (current) use of aspirin; Z79.899 Other long term (current) drug therapy; W22.8XXD Striking against or struck by other objects, subsequent encounter ==

== ENCOUNTER 2020-04-04 06:50 | Day surgery (SDC) | payer MEDICARE, OTHER ==
[~2020-04-04] VITALS: Ht 162.6 cm; Wt 42.7 kg
[~2020-04-04 06:50] MED LIST changes: +CIPROFLOXACIN HCL 0.3% 2.5 ML OPHTHALMIC SOLUTION ONE; +CYCLOPENTOLATE HCL 1% 2 ML OPHTHALMIC SOLUTION ONE; +FLURBIPROFEN SODIUM 0.03% 2.5 ML OPHTHALMIC SOLUTION ONE; +POTA8TAB71 PO; -SLOWK8 PO; +TETRACAINE HCL/PF 0.5% 4 ML OPHTHALMIC SOLUTION ONE; +TROPICAMIDE 1% 2 ML OPHTHALMIC SOLUTION ONE
[2020-04-04] MEDS ORDERED: MIDAZOLAM HCL 2 MG/2 ML VIAL IVP ONE (06:51)
[2020-04-04] MEDS ORDERED: FentaNYL CITRATE-PF 100 MCG/2 ML VIAL IVP ONE (06:51)
[2020-04-04] MEDS ORDERED: RINGERS SOLUTION,LACTATED 500 ML IV ONE ×2 (07:00→07:30)
[2020-04-04] MEDS: FLURBIPROFEN SODIUM 0.03% 2.5 ML OPHTHALMIC SOLUTION OS SCH ×3 (07:27→07:37)
[2020-04-04] MEDS: TROPICAMIDE 1% 2 ML OPHTHALMIC SOLUTION OS SCH ×3 (07:27→07:37)
[2020-04-04] MEDS: CYCLOPENTOLATE HCL 1% 2 ML OPHTHALMIC SOLUTION OS SCH ×3 (07:27→07:37)
[2020-04-04] MEDS: CIPROFLOXACIN HCL 0.3% 2.5 ML OPHTHALMIC SOLUTION OS SCH ×3 (07:27→07:37)
[2020-04-04] MEDS ORDERED: TETRACAINE HCL/PF 0.5% 4 ML OPHTHALMIC SOLUTION OS ONE (08:00)
== END 2020-04-04 11:05 | disposition home or self-care (01) ==
LOC: SURGERY 06:50
PROVIDERS: ATTEND Ophthalmology
DX: H25.22 Age-related cataract, morgagnian type, left eye (principal); I10 Essential (primary) hypertension; F03.90 Unspecified dementia, unspecified severity, without behavioral disturbance, psychotic disturbance, mood disturbance, and anxiety; Z11.59 Encounter for screening for other viral diseases; Z79.899 Other long term (current) drug therapy
CPT/HCPCS: 66982; 87635; 93005; J3010; V2632; J2250

== ENCOUNTER 2020-04-23 23:44 | Inpatient (IN) | payer MEDICARE, OTHER ==
[~2020-04-23] VITALS: Ht 162.6 cm; Wt 45.2 kg
[~2020-04-23 23:44] MED LIST changes: -CIPROFLOXACIN HCL 0.3% 2.5 ML OPHTHALMIC SOLUTION ONE; -CYCLOPENTOLATE HCL 1% 2 ML OPHTHALMIC SOLUTION ONE; -FLURBIPROFEN SODIUM 0.03% 2.5 ML OPHTHALMIC SOLUTION ONE; -TETRACAINE HCL/PF 0.5% 4 ML OPHTHALMIC SOLUTION ONE; -TROPICAMIDE 1% 2 ML OPHTHALMIC SOLUTION ONE
[2020-04-24] MEDS ORDERED: ACETAMINOPHEN 500 MG TABLET PO ONE
[2020-04-24 01:49] LABS: BASOPHILS % (AUTO) 0.4 % (0.0-2.0); HEMATOCRIT 41.4 % (36-46); HEMOGLOBIN 13.5 g/dL (12.0-16.0); LYMPHOCYTES % (AUTO) 8.3 % (22.0-44.0); MEAN CORPUSCULAR HEMOGLOBIN 30.2 pg (26.0-34.0); MEAN CORPUSCULAR HGB CONC 32.7 G/dL (31.0-37.0); MEAN CORPUSCULAR VOLUME 92 fL (80-100); MONOCYTES # (AUTO) 0.8 K/uL (0.1-1.0); NEUTROPHILS % (AUTO) 83.3 % (40.0-70.0); PLATELET COUNT (AUTO) 344 K/uL (150-450); RED BLOOD CELL COUNT(AUTO) 4.48 MIL/uL (4.00-5.20); RED CELL DISTRIBUTION WIDTH 13.6 % (11.5-14.5)
[2020-04-24 01:57] LABS: PROTHROMBIN TIME 10.6 SEC (9.4-11.6)
[2020-04-24 02:01] LABS: ANION GAP 7 mmol/L (8-16); CALCIUM, TOTAL 9.4 mg/dL (8.8-10.5); CARBON DIOXIDE 29 mmol/L (22-29); CHLORIDE 101 mmol/L (98-107); GLUCOSE,RANDOM 99 mg/dL (70-110); POTASSIUM 4.1 mmol/L (3.5-5.1); SODIUM SERUM 137 mmol/L (136-145); UREA NITROGEN, BLOOD 23 mg/dL (7-18)
[2020-04-24 02:13] LABS: ALANINE AMINOTRANSFERASE 20 U/L (12-78); ALBUMIN 3.5 g/dL (3.4-5.0); ALKALINE PHOSPHATASE 108 U/L (46-116); ASPARTATE AMINOTRANSFERASE 22 U/L (15-37); BILIRUBIN,TOTAL 0.7 mg/dL (0.1-1.0); TOTAL PROTEIN, SERUM 6.4 g/dL (6.4-8.2)
[2020-04-24 02:18] LABS: GLOMERULAR FILTR. RATE CALC > 60 mL/min (>60)
[2020-04-24] MEDS ORDERED: 0.9% SODIUM CHLORIDE 10 ML SYRINGE IVP PRN (02:45)
[2020-04-24] MEDS ORDERED: ACETAMINOPHEN 325 MG TABLET PO PRN (02:45)
[2020-04-24] MEDS ORDERED: ONDANSETRON HCL 4 MG/2 ML VIAL IVP PRN ×2 (02:45→08:30)
[2020-04-24 03:50] VITALS: BP 137/73
[2020-04-24 08:05] VITALS: BP 151/76
[2020-04-24] MEDS ORDERED: MAGNESIUM HYDROXIDE SUSPENSION 30 ML UDCUP PO PRN (08:30)
[2020-04-24] MEDS ORDERED: ZOLPIDEM TARTRATE 5 MG TABLET PO PRN (08:30)
[2020-04-24] MEDS ORDERED: BISACODYL 10 MG RECTAL RECTAL SUPPOSITORY PR PRN (08:30)
[2020-04-24] MEDS: METOPROLOL SUCCINATE 50 MG ER TABLET PO SCH (09:00)
[2020-04-24] MEDS ORDERED: DILTIAZEM HCL CD 120 MG ER CAPSULE PO SCH (09:00)
[2020-04-24] MEDS: DIGOXIN 125 MCG TABLET PO SCH (09:00)
[2020-04-24 11:03] VITALS: BP 157/70
[2020-04-24] MEDS: ATORVASTATIN CALCIUM 20 MG TABLET PO SCH (13:13)
[2020-04-24] MEDS: FUROSEMIDE 20 MG TABLET PO SCH (13:13)
[2020-04-24] MEDS: CHOLECALCIFEROL (VIT D3) 1,000 UNITS [25 MCG] TABLET PO SCH (13:14)
[2020-04-24] MEDS: RANOLAZINE 500 MG ER TABLET PO SCH ×2 (13:14→21:01)
[2020-04-24] MEDS: DOCUSATE SODIUM 100 MG CAPSULE PO SCH ×2 (13:14→21:01)
[2020-04-24] MEDS: PANTOPRAZOLE SODIUM 40 MG DR TABLET PO SCH (13:14)
[2020-04-24] MEDS: ASPIRIN 81 MG EC TABLET PO SCH (13:14)
[2020-04-24] MEDS: POTASSIUM CHLORIDE 8 MEQ ER TABLET PO SCH (13:14)
[2020-04-24] MEDS: DONEPEZIL HCL 5 MG TABLET PO SCH (13:15)
[2020-04-24 15:54] VITALS: BP 122/63
[2020-04-24] MEDS: CARVEDILOL 6.25 MG TABLET PO SCH ×2 (17:53→21:01)
[2020-04-24] MEDS: HEPARIN SODIUM,PORCINE 5,000 UNITS/ML VIAL SQ SCH (17:54)
[2020-04-24 20:15] VITALS: BP 105/56
[2020-04-24] MEDS: ACETAMINOPHEN 325 MG TABLET PO PRN (21:03)
[2020-04-24 23:51] VITALS: BP 128/68
[2020-04-25] MEDS: HEPARIN SODIUM,PORCINE 5,000 UNITS/ML VIAL SQ SCH ×2 (00:40→08:00)
[2020-04-25 04:23] VITALS: BP 99/44
[2020-04-25] MEDS ORDERED: SODIUM CHLORIDE 0.9% 1,000 ML IV ONE (07:15)
[2020-04-25 07:21] LABS: BASOPHILS % (AUTO) 0.4 % (0.0-2.0); EOSINOPHILS % (AUTO) 1.9 % (1.0-6.0); HEMATOCRIT 37.6 % (36-46); HEMOGLOBIN 12.5 g/dL (12.0-16.0); LYMPHOCYTES # (AUTO) 1.4 K/uL (1.0-4.8); LYMPHOCYTES % (AUTO) 15.1 % (22.0-44.0); MEAN CORPUSCULAR HEMOGLOBIN 30.6 pg (26.0-34.0); MEAN CORPUSCULAR HGB CONC 33.1 G/dL (31.0-37.0); MEAN CORPUSCULAR VOLUME 93 fL (80-100); MONOCYTES # (AUTO) 0.9 K/uL (0.1-1.0); MONOCYTES % (AUTO) 9.5 % (2.0-9.0); NEUTROPHILS # (AUTO) 6.6 K/uL (1.8-7.7); NEUTROPHILS % (AUTO) 73.1 % (40.0-70.0); PLATELET COUNT (AUTO) 312 K/uL (150-450); RED BLOOD CELL COUNT(AUTO) 4.07 MIL/uL (4.00-5.20); RED CELL DISTRIBUTION WIDTH 13.6 % (11.5-14.5)
[2020-04-25 07:23] VITALS: BP 105/52
[2020-04-25 07:54] LABS: ALANINE AMINOTRANSFERASE 16 U/L (12-78); ALBUMIN 2.6 g/dL (3.4-5.0); ALKALINE PHOSPHATASE 93 U/L (46-116); ANION GAP 3 mmol/L (8-16); ASPARTATE AMINOTRANSFERASE 15 U/L (15-37); BILIRUBIN,TOTAL 0.4 mg/dL (0.1-1.0); CALCIUM, TOTAL 8.6 mg/dL (8.8-10.5); CARBON DIOXIDE 34 mmol/L (22-29); CHLORIDE 102 mmol/L (98-107); CREATININE 0.93 mg/dL (0.60-1.30); GLOMERULAR FILTR. RATE CALC 58 mL/min (>60); GLUCOSE,RANDOM 104 mg/dL (70-110); POTASSIUM 4.1 mmol/L (3.5-5.1); SODIUM SERUM 139 mmol/L (136-145); TOTAL PROTEIN, SERUM 5.6 g/dL (6.4-8.2); UREA NITROGEN, BLOOD 22 mg/dL (7-18)
[2020-04-25 08:03] LABS: DIGOXIN < 0.20 ng/mL (0.90-2.00)
[2020-04-25] MEDS: DIGOXIN 125 MCG TABLET PO SCH (08:45)
[2020-04-25] MEDS: METOPROLOL SUCCINATE 50 MG ER TABLET PO SCH (08:45)
[2020-04-25] MEDS: ASPIRIN 81 MG EC TABLET PO SCH (09:00)
[2020-04-25] MEDS: CARVEDILOL 6.25 MG TABLET PO SCH (09:00)
[2020-04-25] MEDS ORDERED: LIDOCAINE/PF 2% 5 ML VIAL INJ ONE (12:00)
[2020-04-25] MEDS ORDERED: PROPOFOL 1% 20 ML VIAL IVP ONE (12:00)
[2020-04-25] MEDS ORDERED: ROCURONIUM BROMIDE 10 MG/ML 5 ML VIAL IVP ONE (12:00)
[2020-04-25] MEDS ORDERED: ONDANSETRON HCL 4 MG/2 ML VIAL IVP ONE (12:00)
[2020-04-25] MEDS ORDERED: FentaNYL CITRATE-PF 100 MCG/2 ML VIAL IVP ONE (12:00)
[2020-04-25 12:05] VITALS: BP 125/56
[2020-04-25] MEDS ORDERED: BUPIVACAINE HCL/PF 0.5% 30 ML VIAL ONE ×2 (13:07→14:38)
[2020-04-25] MEDS ORDERED: VANCOMYCIN HCL 1 GM/VIAL ONE (13:12)
[2020-04-25] MEDS ORDERED: BUPIVACAINE LIPOSOME/PF 1.3%-13.3MG/ML SUSPENSION 20 ML VIAL INJ ONE (13:15)
[2020-04-25 13:35] LABS: GLUCOMETER DEV NAME(LOC) SDS.; GLUCOSE,POINT OF CARE 86 MG/DL (70-110)
[2020-04-25] MEDS ORDERED: SODIUM CHLORIDE 0.9% 500 ML IV ONE (13:56)
[2020-04-25] MEDS ORDERED: SODIUM CL IRRIG SOLN BAG 3,000 ML IRRIG ONE (15:50)
[2020-04-25] MEDS ORDERED: RINGERS SOLUTION,LACTATED 1,000 ML IV ONE (15:58)
[2020-04-25] MEDS ORDERED: ACETAMINOPHEN 1000 MG/ISO-OSM 100 ML IV ONE (16:15)
[2020-04-25] MEDS ORDERED: FentaNYL CITRATE-PF 100 MCG/2 ML VIAL IVP PRN (16:15)
[2020-04-25] MEDS ORDERED: HYDROmorphone 2 MG/ML SYRINGE IVP PRN (16:15)
[2020-04-25] MEDS ORDERED: SUGAMMADEX SODIUM 200 MG/2 ML VIAL IVP ONE (17:04)
[2020-04-25] MEDS ORDERED: MORPHINE SULFATE 2 MG/ML SYRINGE IVP PRN (17:15)
[2020-04-25] MEDS: RANOLAZINE 500 MG ER TABLET PO SCH ×2 (19:25→21:00)
[2020-04-25] MEDS: DOCUSATE SODIUM 100 MG CAPSULE PO SCH ×2 (19:25→21:00)
[2020-04-25] MEDS: CHOLECALCIFEROL (VIT D3) 1,000 UNITS [25 MCG] TABLET PO SCH (19:25)
[2020-04-25] MEDS: DONEPEZIL HCL 5 MG TABLET PO SCH (19:25)
[2020-04-25] MEDS: PANTOPRAZOLE SODIUM 40 MG DR TABLET PO SCH (19:26)
[2020-04-25] MEDS: POTASSIUM CHLORIDE 8 MEQ ER TABLET PO SCH (19:26)
[2020-04-25] MEDS: ATORVASTATIN CALCIUM 20 MG TABLET PO SCH (19:26)
[2020-04-25] MEDS: CINACALCET HCL 30 MG TABLET PO SCH (19:26)
[2020-04-25] MEDS: FUROSEMIDE 20 MG TABLET PO SCH (19:26)
[2020-04-25 19:37] VITALS: BP 120/66
[2020-04-25] MEDS: OXYGEN THERAPY IH SCH (23:27)
[2020-04-26] VITALS (7 sets, daily range): BP systolic 89–104; BP diastolic 49–57
[2020-04-26] MEDS: ACETAMINOPHEN 325 MG TABLET PO PRN ×3 (00:31→19:02)
[2020-04-26 06:22] LABS: BASOPHILS % (AUTO) 0.4 % (0.0-2.0); EOSINOPHILS % (AUTO) 0.7 % (1.0-6.0); HEMOGLOBIN 11.2 g/dL (12.0-16.0); LYMPHOCYTES # (AUTO) 0.8 K/uL (1.0-4.8); LYMPHOCYTES % (AUTO) 8.5 % (22.0-44.0); MEAN CORPUSCULAR HEMOGLOBIN 31.2 pg (26.0-34.0); MEAN CORPUSCULAR HGB CONC 33.9 G/dL (31.0-37.0); MEAN CORPUSCULAR VOLUME 92 fL (80-100); MONOCYTES # (AUTO) 0.9 K/uL (0.1-1.0); MONOCYTES % (AUTO) 9.2 % (2.0-9.0); NEUTROPHILS % (AUTO) 81.2 % (40.0-70.0); PLATELET COUNT (AUTO) 316 K/uL (150-450); RED BLOOD CELL COUNT(AUTO) 3.58 MIL/uL (4.00-5.20); RED CELL DISTRIBUTION WIDTH 13.3 % (11.5-14.5)
[2020-04-26 06:48] LABS: ALANINE AMINOTRANSFERASE 16 U/L (12-78); ALBUMIN 2.2 g/dL (3.4-5.0); ALKALINE PHOSPHATASE 74 U/L (46-116); ANION GAP 4 mmol/L (8-16); ASPARTATE AMINOTRANSFERASE 15 U/L (15-37); BILIRUBIN,TOTAL 0.3 mg/dL (0.1-1.0); CALCIUM, TOTAL 8.5 mg/dL (8.8-10.5); CARBON DIOXIDE 31 mmol/L (22-29); CHLORIDE 105 mmol/L (98-107); CREATININE 0.65 mg/dL (0.60-1.30); GLUCOSE,RANDOM 143 mg/dL (70-110); POTASSIUM 4.4 mmol/L (3.5-5.1); SODIUM SERUM 140 mmol/L (136-145); UREA NITROGEN, BLOOD 16 mg/dL (7-18)
[2020-04-26 06:55] LABS: GLOMERULAR FILTR. RATE CALC > 60 mL/min (>60)
[2020-04-26] MEDS ORDERED: SODIUM CHLORIDE 0.9% 1,000 ML IV ONE (07:15)
[2020-04-26] MEDS: METOPROLOL SUCCINATE 50 MG ER TABLET PO SCH (08:25)
[2020-04-26] MEDS: ASPIRIN 81 MG EC TABLET PO SCH (08:54)
[2020-04-26] MEDS: ENOXAPARIN SODIUM 30 MG/0.3 ML PF SYRINGE SQ SCH (08:54)
[2020-04-26] MEDS: CHOLECALCIFEROL (VIT D3) 1,000 UNITS [25 MCG] TABLET PO SCH (08:54)
[2020-04-26] MEDS: DOCUSATE SODIUM 100 MG CAPSULE PO SCH ×2 (08:55→20:38)
[2020-04-26] MEDS: CINACALCET HCL 30 MG TABLET PO SCH (08:55)
[2020-04-26] MEDS: PANTOPRAZOLE SODIUM 40 MG DR TABLET PO SCH (08:55)
[2020-04-26] MEDS: RANOLAZINE 500 MG ER TABLET PO SCH ×2 (08:55→20:38)
[2020-04-26] MEDS: ATORVASTATIN CALCIUM 20 MG TABLET PO SCH (08:55)
[2020-04-26] MEDS: DONEPEZIL HCL 5 MG TABLET PO SCH (08:55)
[2020-04-26] MEDS: OXYGEN THERAPY IH SCH ×2 (08:56→20:00)
[2020-04-26] MEDS ORDERED: SODIUM CHLORIDE 0.9% 500 ML IV ONE ×2 (15:33→15:45)
[2020-04-27 04:12] VITALS: BP 101/49
[2020-04-27 07:31] VITALS: BP 98/58
[2020-04-27] MEDS: DOCUSATE SODIUM 100 MG CAPSULE PO SCH (08:18)
[2020-04-27] MEDS: OXYGEN THERAPY IH SCH (08:18)
[2020-04-27] MEDS: PANTOPRAZOLE SODIUM 40 MG DR TABLET PO SCH (08:18)
[2020-04-27] MEDS: CHOLECALCIFEROL (VIT D3) 1,000 UNITS [25 MCG] TABLET PO SCH (08:18)
[2020-04-27] MEDS: ASPIRIN 81 MG EC TABLET PO SCH (08:18)
[2020-04-27] MEDS: ATORVASTATIN CALCIUM 20 MG TABLET PO SCH (08:18)
[2020-04-27] MEDS: RANOLAZINE 500 MG ER TABLET PO SCH (08:19)
[2020-04-27] MEDS: METOPROLOL SUCCINATE 50 MG ER TABLET PO SCH (08:19)
[2020-04-27] MEDS: CINACALCET HCL 30 MG TABLET PO SCH (08:19)
[2020-04-27] MEDS: DONEPEZIL HCL 5 MG TABLET PO SCH (08:19)
[2020-04-27] MEDS: ACETAMINOPHEN 325 MG TABLET PO PRN (08:20)
[2020-04-27] MEDS: ENOXAPARIN SODIUM 30 MG/0.3 ML PF SYRINGE SQ SCH (08:20)
[2020-04-27 08:24] LABS: BASOPHILS % (AUTO) 0.5 % (0.0-2.0); EOSINOPHILS % (AUTO) 1.6 % (1.0-6.0); HEMATOCRIT 31.5 % (36-46); HEMOGLOBIN 10.6 g/dL (12.0-16.0); LYMPHOCYTES # (AUTO) 1.1 K/uL (1.0-4.8); LYMPHOCYTES % (AUTO) 10.3 % (22.0-44.0); MEAN CORPUSCULAR HGB CONC 33.5 G/dL (31.0-37.0); MEAN CORPUSCULAR VOLUME 93 fL (80-100); MONOCYTES # (AUTO) 1.2 K/uL (0.1-1.0); MONOCYTES % (AUTO) 11.1 % (2.0-9.0); NEUTROPHILS # (AUTO) 8.3 K/uL (1.8-7.7); NEUTROPHILS % (AUTO) 76.5 % (40.0-70.0); PLATELET COUNT (AUTO) 270 K/uL (150-450); RED BLOOD CELL COUNT(AUTO) 3.41 MIL/uL (4.00-5.20); RED CELL DISTRIBUTION WIDTH 13.3 % (11.5-14.5)
[2020-04-27 08:49] LABS: ALANINE AMINOTRANSFERASE 17 U/L (12-78); ALBUMIN 2.1 g/dL (3.4-5.0); ALKALINE PHOSPHATASE 81 U/L (46-116); ANION GAP 11 mmol/L (8-16); ASPARTATE AMINOTRANSFERASE 19 U/L (15-37); BILIRUBIN,TOTAL 0.4 mg/dL (0.1-1.0); CALCIUM, TOTAL 7.9 mg/dL (8.8-10.5); CARBON DIOXIDE 33 mmol/L (22-29); CHLORIDE 102 mmol/L (98-107); CREATININE 0.89 mg/dL (0.60-1.30); GLUCOSE,RANDOM 94 mg/dL (70-110); POTASSIUM 4.5 mmol/L (3.5-5.1); SODIUM SERUM 146 mmol/L (136-145); UREA NITROGEN, BLOOD 20 mg/dL (7-18)
[2020-04-27 08:50] LABS: GLOMERULAR FILTR. RATE CALC > 60 mL/min (>60)
[2020-04-27 11:07] VITALS: BP 96/56
[2020-04-27] MEDS ORDERED: ENOX30DI5 SQ (12:58)
[2020-04-27] MEDS ORDERED: METO25XL PO (12:59)
[2020-04-27] MEDS ORDERED: ACET-784 PO (13:00)
[2020-04-27] MEDS ORDERED: BISA-151 PO (13:01)
[2020-04-27] MEDS ORDERED: MOM30 PO (13:01)
[2020-04-27] MEDS ORDERED: ONDA4VIA22 IV (13:06)
[2020-04-27] MEDS ORDERED: ZOLP-280 PO (13:06)
[2020-04-27] MEDS ORDERED: DOCU-275 PO (14:32)
[2020-04-27] MEDS ORDERED: CHOL100018 PO (14:32)
[2020-04-28] MEDS ORDERED: METOPROLOL SUCCINATE 25 MG ER TABLET PO SCH (09:00)
== END 2020-04-27 13:30 | DRG 470 ==
LOC: EMS 23:44 → 5S 04-24 02:34
PROVIDERS: ADMIT Internal Medicine; ATTEND Internal Medicine
PROC: 0SRR0JZ Replacement of Right Hip Joint, Femoral Surface with Synthetic Substitute, Open Approach (ICD-10-PCS; principal; 2020-04-25 14:00)
DX: S72.011A Unspecified intracapsular fracture of right femur, initial encounter for closed fracture (principal); I47.1 Supraventricular tachycardia; F03.90 Unspecified dementia, unspecified severity, without behavioral disturbance, psychotic disturbance, mood disturbance, and anxiety; J44.9 Chronic obstructive pulmonary disease, unspecified; E78.5 Hyperlipidemia, unspecified; I25.10 Atherosclerotic heart disease of native coronary artery without angina pectoris; I50.9 Heart failure, unspecified; I11.0 Hypertensive heart disease with heart failure; W18.30XA Fall on same level, unspecified, initial encounter; Z90.710 Acquired absence of both cervix and uterus; Z96.642 Presence of left artificial hip joint; Z95.5 Presence of coronary angioplasty implant and graft; Z88.5 Allergy status to narcotic agent; Z88.8 Allergy status to other drugs, medicaments and biological substances; Y93.89 Activity, other specified; Y92.89 Other specified places as the place of occurrence of the external cause; Y99.8 Other external cause status
CPT/HCPCS: 73502; 73552; 83735; 86850; 86900; 86901; 86923; 93005; 93306; 97162; 97167; 97530; 97535; C9290; J0690; J1644; J1650; J2405; J2704; J3010; J3370; J3490; J7030; J7040; J7120

== ENCOUNTER 2020-04-27 13:45 | Inpatient (IN) | payer MEDICARE, OTHER ==
[~2020-04-27] VITALS: Ht 162.6 cm; Wt 113.0 kg
[~2020-04-27 13:45] MED LIST changes: +ACET-784 PO; +BISA-151 PO; +ENOX30DI5 SQ; +METO25XL PO; +MOM30 PO; +ONDA4VIA22 IV; +ZOLP-280 PO
[2020-04-27] MEDS ORDERED: ACETAMINOPHEN 325 MG TABLET PO PRN (14:30)
[2020-04-27] MEDS ORDERED: DOCU-275 PO (14:32)
[2020-04-27] MEDS ORDERED: CHOL100018 PO (14:32)
[2020-04-27 14:45] VITALS: BP 99/65
[2020-04-27 15:15] VITALS: BP 99/65
[2020-04-27] MEDS ORDERED: ACETAMINOPHEN 650 MG/20.3 ML SOLUTION UDCUP PO PRN (16:00)
[2020-04-27] MEDS: ALBUTEROL SULFATE/IPRATROPIUM 100-20 MCG/SPRAY 4 GM INHALER IH SCH ×2 (17:15→20:43)
[2020-04-27] MEDS: ACETAMINOPHEN 325 MG TABLET PO PRN (19:46)
[2020-04-27] MEDS: ENOXAPARIN SODIUM 30 MG/0.3 ML PF SYRINGE SQ SCH (20:44)
[2020-04-27] MEDS: ATORVASTATIN CALCIUM 20 MG TABLET PO SCH (20:44)
[2020-04-27] MEDS: MELATONIN 5 MG TABLET PO PRN (20:44)
[2020-04-27] MEDS: DOCUSATE SODIUM 100 MG CAPSULE PO SCH (20:44)
[2020-04-27] MEDS: RANOLAZINE 500 MG ER TABLET PO SCH (20:44)
[2020-04-27] MEDS: SENNA 187 MG TABLET PO SCH (20:46)
[2020-04-27] MEDS: MAGNESIUM HYDROXIDE SUSPENSION 30 ML UDCUP PO PRN (20:49)
[2020-04-28] VITALS: BP 91/58
[2020-04-28] MEDS: ACETAMINOPHEN 325 MG TABLET PO PRN ×3 (02:39→20:43)
[2020-04-28 07:20] LABS: BASOPHILS % (AUTO) 0.4 % (0.0-2.0); EOSINOPHILS % (AUTO) 1.6 % (1.0-6.0); HEMATOCRIT 28.9 % (36-46); HEMOGLOBIN 9.5 g/dL (12.0-16.0); LYMPHOCYTES # (AUTO) 1.4 K/uL (1.0-4.8); LYMPHOCYTES % (AUTO) 11.9 % (22.0-44.0); MEAN CORPUSCULAR HEMOGLOBIN 30.2 pg (26.0-34.0); MEAN CORPUSCULAR HGB CONC 32.8 G/dL (31.0-37.0); MEAN CORPUSCULAR VOLUME 92 fL (80-100); MONOCYTES # (AUTO) 1.1 K/uL (0.1-1.0); MONOCYTES % (AUTO) 9.6 % (2.0-9.0); NEUTROPHILS # (AUTO) 8.7 K/uL (1.8-7.7); NEUTROPHILS % (AUTO) 76.5 % (40.0-70.0); PLATELET COUNT (AUTO) 286 K/uL (150-450); RED BLOOD CELL COUNT(AUTO) 3.14 MIL/uL (4.00-5.20); RED CELL DISTRIBUTION WIDTH 13.3 % (11.5-14.5)
[2020-04-28 07:57] LABS: ALBUMIN 2.1 g/dL (3.4-5.0); BILIRUBIN,TOTAL 0.4 mg/dL (0.1-1.0); CALCIUM, TOTAL 7.9 mg/dL (8.8-10.5); CREATININE 0.97 mg/dL (0.60-1.30); POTASSIUM 4.3 mmol/L (3.5-5.1); TOTAL PROTEIN, SERUM 5.1 g/dL (6.4-8.2)
[2020-04-28 09:05] VITALS: BP 106/61
[2020-04-28 09:20] VITALS: BP 120/60
[2020-04-28] MEDS: CINACALCET HCL 30 MG TABLET PO SCH (09:20)
[2020-04-28] MEDS: CHOLECALCIFEROL (VIT D3) 1,000 UNITS [25 MCG] TABLET PO SCH (09:20)
[2020-04-28] MEDS: RANOLAZINE 500 MG ER TABLET PO SCH ×2 (09:20→20:36)
[2020-04-28] MEDS: METOPROLOL SUCCINATE 25 MG ER TABLET PO SCH (09:20)
[2020-04-28] MEDS: ALBUTEROL SULFATE/IPRATROPIUM 100-20 MCG/SPRAY 4 GM INHALER IH SCH ×4 (09:20→20:38)
[2020-04-28] MEDS: ASPIRIN 81 MG EC TABLET PO SCH (09:20)
[2020-04-28] MEDS: DOCUSATE SODIUM 100 MG CAPSULE PO SCH ×2 (09:21→20:38)
[2020-04-28] MEDS: ENOXAPARIN SODIUM 30 MG/0.3 ML PF SYRINGE SQ SCH ×2 (09:21→20:38)
[2020-04-28] MEDS: DONEPEZIL HCL 5 MG TABLET PO SCH (09:21)
[2020-04-28 15:19] LABS: APPEARANCE,URINE CLEAR (CLEAR); BILIRUBIN,URINE NEGATIVE (NEGATIVE); GLUCOSE, URINE (UA) NEGATIVE (NEGATIVE); KETONES,URINE NEGATIVE (NEGATIVE); LEUKOCYTE ESTERASE ,URINE TRACE (NEGATIVE); NITRATE,URINE NEGATIVE (NEGATIVE); OCCULT BLOOD,URINE LARGE (NEGATIVE); PH,URINE 6.5 (5.0-8.0); PROTEIN,URINE NEGATIVE (NEGATIVE)
[2020-04-28 15:25] VITALS: BP 115/73
[2020-04-28 15:31] LABS: WBC,URINE 0-2 /HPF (0-5)
[2020-04-28 15:32] LABS: BACTERIA,URINE Few /HPF (None Seen)
[2020-04-28] MEDS: CALCIUM CARBONATE 500 MG CHEWABLE TABLET CHEW SCH ×2 (17:06→20:36)
[2020-04-28] MEDS: SENNA 187 MG TABLET PO SCH (20:37)
[2020-04-28] MEDS: MAGNESIUM HYDROXIDE SUSPENSION 30 ML UDCUP PO PRN (20:37)
[2020-04-28] MEDS: ATORVASTATIN CALCIUM 20 MG TABLET PO SCH (20:39)
[2020-04-28] MEDS: MELATONIN 5 MG TABLET PO PRN (20:39)
[2020-04-29 00:58] VITALS: BP 104/60
[2020-04-29] MEDS: ACETAMINOPHEN 325 MG TABLET PO PRN ×2 (00:58→07:57)
[2020-04-29] MEDS: CINACALCET HCL 30 MG TABLET PO SCH (07:56)
[2020-04-29 08:00] VITALS: BP 111/57
[2020-04-29] MEDS: CHOLECALCIFEROL (VIT D3) 1,000 UNITS [25 MCG] TABLET PO SCH (08:02)
[2020-04-29] MEDS: DONEPEZIL HCL 5 MG TABLET PO SCH (08:02)
[2020-04-29] MEDS: ALBUTEROL SULFATE/IPRATROPIUM 100-20 MCG/SPRAY 4 GM INHALER IH SCH ×4 (08:02→21:00)
[2020-04-29] MEDS: METOPROLOL SUCCINATE 25 MG ER TABLET PO SCH (08:02)
[2020-04-29] MEDS: RANOLAZINE 500 MG ER TABLET PO SCH ×2 (08:02→20:32)
[2020-04-29] MEDS: ASPIRIN 81 MG EC TABLET PO SCH (08:02)
[2020-04-29] MEDS: CALCIUM CARBONATE 500 MG CHEWABLE TABLET CHEW SCH ×3 (08:02→20:31)
[2020-04-29] MEDS: DOCUSATE SODIUM 100 MG CAPSULE PO SCH ×2 (08:02→20:31)
[2020-04-29] MEDS: ENOXAPARIN SODIUM 30 MG/0.3 ML PF SYRINGE SQ SCH ×2 (08:03→20:32)
[2020-04-29] MEDS: ONDANSETRON HCL 4 MG TABLET PO PRN (11:15)
[2020-04-29 16:00] VITALS: BP 114/62
[2020-04-29] MEDS ORDERED: LORazepam 2 MG/ML VIAL IVP ONE (17:45)
[2020-04-29] MEDS ORDERED: LORazepam 2 MG/ML VIAL IM ONE (18:00)
[2020-04-29 20:13] VITALS: BP 80/54
[2020-04-29 20:24] VITALS: BP 107/51
[2020-04-29] MEDS: ATORVASTATIN CALCIUM 20 MG TABLET PO SCH (20:30)
[2020-04-29] MEDS: QUEtiapine FUMARATE 25 MG TABLET PO SCH (20:31)
[2020-04-29] MEDS: SENNA 187 MG TABLET PO SCH (20:31)
[2020-04-30] VITALS (7 sets, daily range): BP systolic 80–113; BP diastolic 45–68
[2020-04-30] MEDS: CINACALCET HCL 30 MG TABLET PO SCH (09:35)
[2020-04-30] MEDS: DOCUSATE SODIUM 100 MG CAPSULE PO SCH ×2 (09:36→19:38)
[2020-04-30] MEDS: MAGNESIUM HYDROXIDE SUSPENSION 30 ML UDCUP PO PRN (09:36)
[2020-04-30] MEDS: METOPROLOL SUCCINATE 25 MG ER TABLET PO SCH (09:36)
[2020-04-30] MEDS: ASPIRIN 81 MG EC TABLET PO SCH (09:36)
[2020-04-30] MEDS: DONEPEZIL HCL 5 MG TABLET PO SCH (09:36)
[2020-04-30] MEDS: RANOLAZINE 500 MG ER TABLET PO SCH ×2 (09:37→19:38)
[2020-04-30] MEDS: CHOLECALCIFEROL (VIT D3) 1,000 UNITS [25 MCG] TABLET PO SCH (09:37)
[2020-04-30] MEDS: ALBUTEROL SULFATE/IPRATROPIUM 100-20 MCG/SPRAY 4 GM INHALER IH SCH ×5 (09:38→20:09)
[2020-04-30] MEDS: CALCIUM CARBONATE 500 MG CHEWABLE TABLET CHEW SCH ×3 (09:38→19:38)
[2020-04-30] MEDS: ENOXAPARIN SODIUM 30 MG/0.3 ML PF SYRINGE SQ SCH ×2 (09:42→19:40)
[2020-04-30] MEDS: HYDROCODONE/ACETAMINOPHEN 5-325 MG TABLET PO PRN (09:57)
[2020-04-30] MEDS: ONDANSETRON HCL 4 MG TABLET PO PRN (14:05)
[2020-04-30] MEDS ORDERED: SODIUM CHLORIDE 0.9% 250 ML IV ONE (15:30)
[2020-04-30] MEDS: QUEtiapine FUMARATE 25 MG TABLET PO SCH (19:38)
[2020-04-30] MEDS: ATORVASTATIN CALCIUM 20 MG TABLET PO SCH (19:38)
[2020-04-30] MEDS: SENNA 187 MG TABLET PO SCH (19:38)
[2020-04-30] MEDS: ACETAMINOPHEN 325 MG TABLET PO PRN (20:31)
[2020-04-30] MEDS: MELATONIN 5 MG TABLET PO PRN (20:36)
[2020-05-01] VITALS (10 sets, daily range): BP systolic 84–121; BP diastolic 34–66
[2020-05-01] MEDS: HYDROCODONE/ACETAMINOPHEN 5-325 MG TABLET PO PRN (07:51)
[2020-05-01 08:18] LABS: BASOPHILS % (AUTO) 0.7 % (0.0-2.0); EOSINOPHILS % (AUTO) 2.4 % (1.0-6.0); HEMATOCRIT 24.6 % (36-46); HEMOGLOBIN 8.4 g/dL (12.0-16.0); LYMPHOCYTES # (AUTO) 1.6 K/uL (1.0-4.8); LYMPHOCYTES % (AUTO) 15.4 % (22.0-44.0); MEAN CORPUSCULAR HEMOGLOBIN 31.4 pg (26.0-34.0); MEAN CORPUSCULAR HGB CONC 34.1 G/dL (31.0-37.0); MEAN CORPUSCULAR VOLUME 92 fL (80-100); MONOCYTES # (AUTO) 0.9 K/uL (0.1-1.0); MONOCYTES % (AUTO) 8.6 % (2.0-9.0); NEUTROPHILS # (AUTO) 7.8 K/uL (1.8-7.7); NEUTROPHILS % (AUTO) 72.9 % (40.0-70.0); PLATELET COUNT (AUTO) 348 K/uL (150-450); RED BLOOD CELL COUNT(AUTO) 2.67 MIL/uL (4.00-5.20); RED CELL DISTRIBUTION WIDTH 13.3 % (11.5-14.5)
[2020-05-01] MEDS: CINACALCET HCL 30 MG TABLET PO SCH (08:24)
[2020-05-01] MEDS: CHOLECALCIFEROL (VIT D3) 1,000 UNITS [25 MCG] TABLET PO SCH (08:24)
[2020-05-01] MEDS: RANOLAZINE 500 MG ER TABLET PO SCH ×2 (08:24→20:42)
[2020-05-01] MEDS: METOPROLOL SUCCINATE 25 MG ER TABLET PO SCH (08:24)
[2020-05-01] MEDS: DONEPEZIL HCL 5 MG TABLET PO SCH (08:24)
[2020-05-01] MEDS: CALCIUM CARBONATE 500 MG CHEWABLE TABLET CHEW SCH ×3 (08:24→20:41)
[2020-05-01] MEDS: ALBUTEROL SULFATE/IPRATROPIUM 100-20 MCG/SPRAY 4 GM INHALER IH SCH ×5 (08:25→20:56)
[2020-05-01] MEDS: DOCUSATE SODIUM 100 MG CAPSULE PO SCH ×2 (08:26→20:41)
[2020-05-01] MEDS: ENOXAPARIN SODIUM 30 MG/0.3 ML PF SYRINGE SQ SCH ×3 (08:26→20:57)
[2020-05-01] MEDS: ASPIRIN 81 MG EC TABLET PO SCH (08:27)
[2020-05-01 08:28] LABS: ANION GAP 4 mmol/L (8-16); CALCIUM, TOTAL 7.5 mg/dL (8.8-10.5); CARBON DIOXIDE 33 mmol/L (22-29); CHLORIDE 104 mmol/L (98-107); CREATININE 0.76 mg/dL (0.60-1.30); GLOMERULAR FILTR. RATE CALC > 60 mL/min (>60); GLUCOSE,RANDOM 101 mg/dL (70-110); POTASSIUM 4.6 mmol/L (3.5-5.1); SODIUM SERUM 141 mmol/L (136-145); UREA NITROGEN, BLOOD 24 mg/dL (7-18)
[2020-05-01] MEDS ORDERED: SODIUM CHLORIDE 0.9% 250 ML IV ONE ×2 (11:24→11:30)
[2020-05-01] MEDS: ACETAMINOPHEN 325 MG TABLET PO PRN ×3 (13:13→23:36)
[2020-05-01] MEDS: QUEtiapine FUMARATE 25 MG TABLET PO SCH (19:52)
[2020-05-01] MEDS: MELATONIN 5 MG TABLET PO PRN (19:56)
[2020-05-01] MEDS: ATORVASTATIN CALCIUM 20 MG TABLET PO SCH (20:42)
[2020-05-01] MEDS: SENNA 187 MG TABLET PO SCH ×2 (20:42→20:57)
[2020-05-02 05:48] VITALS: BP 108/56
[2020-05-02] MEDS: ONDANSETRON HCL 4 MG TABLET PO PRN (07:06)
[2020-05-02 07:10] VITALS: BP 104/61
[2020-05-02 07:18] LABS: BASOPHILS % (AUTO) 0.7 % (0.0-2.0); EOSINOPHILS % (AUTO) 2.9 % (1.0-6.0); HEMATOCRIT 23.7 % (36-46); LYMPHOCYTES # (AUTO) 1.3 K/uL (1.0-4.8); LYMPHOCYTES % (AUTO) 14.6 % (22.0-44.0); MEAN CORPUSCULAR HEMOGLOBIN 31.2 pg (26.0-34.0); MEAN CORPUSCULAR HGB CONC 33.8 G/dL (31.0-37.0); MEAN CORPUSCULAR VOLUME 92 fL (80-100); MONOCYTES # (AUTO) 0.9 K/uL (0.1-1.0); MONOCYTES % (AUTO) 10.4 % (2.0-9.0); NEUTROPHILS # (AUTO) 6.4 K/uL (1.8-7.7); NEUTROPHILS % (AUTO) 71.4 % (40.0-70.0); PLATELET COUNT (AUTO) 357 K/uL (150-450); RED BLOOD CELL COUNT(AUTO) 2.57 MIL/uL (4.00-5.20); RED CELL DISTRIBUTION WIDTH 13.2 % (11.5-14.5)
[2020-05-02 07:24] LABS: ANION GAP 5 mmol/L (8-16); CALCIUM, TOTAL 7.6 mg/dL (8.8-10.5); CARBON DIOXIDE 31 mmol/L (22-29); CHLORIDE 105 mmol/L (98-107); GLUCOSE,RANDOM 113 mg/dL (70-110); POTASSIUM 4.3 mmol/L (3.5-5.1); SODIUM SERUM 141 mmol/L (136-145); UREA NITROGEN, BLOOD 20 mg/dL (7-18)
[2020-05-02 07:29] LABS: GLOMERULAR FILTR. RATE CALC > 60 mL/min (>60)
[2020-05-02] MEDS: ACETAMINOPHEN 325 MG TABLET PO PRN ×3 (08:01→18:22)
[2020-05-02] MEDS: CINACALCET HCL 30 MG TABLET PO SCH (08:05)
[2020-05-02] MEDS: CALCIUM CARBONATE 500 MG CHEWABLE TABLET CHEW SCH ×3 (08:06→20:33)
[2020-05-02] MEDS: DOCUSATE SODIUM 100 MG CAPSULE PO SCH ×2 (08:07→20:32)
[2020-05-02] MEDS: DONEPEZIL HCL 5 MG TABLET PO SCH (08:07)
[2020-05-02] MEDS: ASPIRIN 81 MG EC TABLET PO SCH (08:07)
[2020-05-02] MEDS: CHOLECALCIFEROL (VIT D3) 1,000 UNITS [25 MCG] TABLET PO SCH (08:07)
[2020-05-02] MEDS: ALBUTEROL SULFATE/IPRATROPIUM 100-20 MCG/SPRAY 4 GM INHALER IH SCH ×4 (08:07→20:32)
[2020-05-02] MEDS: RANOLAZINE 500 MG ER TABLET PO SCH ×2 (08:07→20:33)
[2020-05-02] MEDS: ENOXAPARIN SODIUM 30 MG/0.3 ML PF SYRINGE SQ SCH ×2 (08:09→20:32)
[2020-05-02] MEDS: METOPROLOL SUCCINATE 25 MG ER TABLET PO SCH (08:13)
[2020-05-02 15:20] VITALS: BP 105/41
[2020-05-02 16:03] VITALS: BP 132/62
[2020-05-02] MEDS: QUEtiapine FUMARATE 25 MG TABLET PO SCH (20:32)
[2020-05-02] MEDS: MELATONIN 5 MG TABLET PO PRN (20:32)
[2020-05-02] MEDS: ATORVASTATIN CALCIUM 20 MG TABLET PO SCH (20:33)
[2020-05-02] MEDS: SENNA 187 MG TABLET PO SCH (20:33)
[2020-05-03 01:20] VITALS: BP 105/53
[2020-05-03] MEDS: ACETAMINOPHEN 325 MG TABLET PO PRN ×4 (03:50→16:48)
[2020-05-03] MEDS ORDERED: CALC-613 PO (04:49)
[2020-05-03] MEDS ORDERED: QUET25TA PO (04:49)
[2020-05-03] MEDS ORDERED: SENN8.6T90 PO (04:49)
[2020-05-03] MEDS ORDERED: MELA5TAB3 PO (04:49)
[2020-05-03] MEDS: CALCIUM CARBONATE 500 MG CHEWABLE TABLET CHEW SCH ×3 (06:23→20:18)
[2020-05-03 07:44] VITALS: BP 117/57
[2020-05-03] MEDS: ONDANSETRON HCL 4 MG TABLET PO PRN (07:54)
[2020-05-03] MEDS: ASPIRIN 81 MG EC TABLET PO SCH (08:26)
[2020-05-03] MEDS: CINACALCET HCL 30 MG TABLET PO SCH (08:26)
[2020-05-03] MEDS: RANOLAZINE 500 MG ER TABLET PO SCH ×2 (08:27→20:11)
[2020-05-03] MEDS: DONEPEZIL HCL 5 MG TABLET PO SCH (08:27)
[2020-05-03] MEDS: METOPROLOL SUCCINATE 25 MG ER TABLET PO SCH (08:27)
[2020-05-03] MEDS: ENOXAPARIN SODIUM 30 MG/0.3 ML PF SYRINGE SQ SCH ×2 (08:27→20:27)
[2020-05-03] MEDS: CHOLECALCIFEROL (VIT D3) 1,000 UNITS [25 MCG] TABLET PO SCH (08:27)
[2020-05-03] MEDS: DOCUSATE SODIUM 100 MG CAPSULE PO SCH ×2 (08:27→20:18)
[2020-05-03] MEDS: ALBUTEROL SULFATE/IPRATROPIUM 100-20 MCG/SPRAY 4 GM INHALER IH SCH ×4 (08:28→21:00)
[2020-05-03] MEDS: FAMOTIDINE 20 MG TABLET PO SCH ×2 (12:34→20:13)
[2020-05-03 15:37] VITALS: BP 109/59
[2020-05-03] MEDS: MAGNESIUM HYDROXIDE SUSPENSION 30 ML UDCUP PO PRN (19:16)
[2020-05-03] MEDS: QUEtiapine FUMARATE 25 MG TABLET PO SCH (20:11)
[2020-05-03] MEDS: MELATONIN 5 MG TABLET PO PRN (20:11)
[2020-05-03] MEDS: ATORVASTATIN CALCIUM 20 MG TABLET PO SCH (20:13)
[2020-05-03] MEDS: SENNA 187 MG TABLET PO SCH (20:14)
[2020-05-04 00:52] VITALS: BP 120/78
[2020-05-04] MEDS: ACETAMINOPHEN 325 MG TABLET PO PRN ×2 (00:52→08:28)
[2020-05-04 07:03] VITALS: BP 116/59
[2020-05-04] MEDS: CALCIUM CARBONATE 500 MG CHEWABLE TABLET CHEW SCH (07:14)
[2020-05-04] MEDS: ALBUTEROL SULFATE/IPRATROPIUM 100-20 MCG/SPRAY 4 GM INHALER IH SCH ×2 (07:30→13:34)
[2020-05-04] MEDS: ONDANSETRON HCL 4 MG TABLET PO PRN (07:31)
[2020-05-04] MEDS: CINACALCET HCL 30 MG TABLET PO SCH (08:31)
[2020-05-04] MEDS: FAMOTIDINE 20 MG TABLET PO SCH (08:31)
[2020-05-04] MEDS: ASPIRIN 81 MG EC TABLET PO SCH (08:31)
[2020-05-04] MEDS: RANOLAZINE 500 MG ER TABLET PO SCH (08:33)
[2020-05-04] MEDS: DONEPEZIL HCL 5 MG TABLET PO SCH (09:17)
[2020-05-04] MEDS: ENOXAPARIN SODIUM 30 MG/0.3 ML PF SYRINGE SQ SCH (09:17)
[2020-05-04] MEDS: CHOLECALCIFEROL (VIT D3) 1,000 UNITS [25 MCG] TABLET PO SCH (09:17)
[2020-05-04] MEDS: DOCUSATE SODIUM 100 MG CAPSULE PO SCH (09:17)
[2020-05-04] MEDS: METOPROLOL SUCCINATE 25 MG ER TABLET PO SCH (09:19)
[2020-05-04] MEDS: MAGNESIUM HYDROXIDE SUSPENSION 30 ML UDCUP PO PRN (13:42)
== END 2020-05-04 15:13 | DRG 535 ==
LOC: 2WR 13:45
PROVIDERS: ADMIT Physical Medicine & Rehabilitation; ATTEND Physical Medicine & Rehabilitation
DX: S72.011A Unspecified intracapsular fracture of right femur, initial encounter for closed fracture (principal); E43 Unspecified severe protein-calorie malnutrition; Z68.1 Body mass index [BMI] 19.9 or less, adult; K59.00 Constipation, unspecified; J44.9 Chronic obstructive pulmonary disease, unspecified; I50.9 Heart failure, unspecified; F03.90 Unspecified dementia, unspecified severity, without behavioral disturbance, psychotic disturbance, mood disturbance, and anxiety; I11.0 Hypertensive heart disease with heart failure; I25.10 Atherosclerotic heart disease of native coronary artery without angina pectoris; M81.0 Age-related osteoporosis without current pathological fracture; Z96.641 Presence of right artificial hip joint; Z91.81 History of falling; Z95.5 Presence of coronary angioplasty implant and graft
CPT/HCPCS: 73502; 82271; 87081; 97110; 97163; 97167; 97530; 97535; 99366; J1650; J2060; J7050; Q0162

== ENCOUNTER 2020-06-28 11:14 | Emergency (ER) | payer MEDICARE, OTHER ==
[~2020-06-28] VITALS: Ht 167.6 cm; Wt 45.5 kg
[~2020-06-28 11:14] MED LIST changes: -BISA-151 PO; -BUDE180H IH; +CALC-613 PO; -CARV6 PO; -CLOP75TA3 PO; -DIGO125T84 PO; -DILT-39 PO; +DOCU-275 PO; -DSS100 PO; -FURO20 PO; +MELA5TAB3 PO; -METO-558 PO; -NITR0.4T52 SL; -ONDA4VIA22 IV; -POTA8TAB71 PO; +QUET25TA PO; -ROFL500T PO; +SENN8.6T90 PO; -TRAM50TA4 PO; -ZOLP-280 PO
[2020-06-28] MEDS ORDERED: 0.9% SODIUM CHLORIDE 10 ML SYRINGE IVP PRN (12:00)
[2020-06-28 12:42] LABS: BASOPHILS % (AUTO) 1.2 % (0.0-2.0); EOSINOPHILS % (AUTO) 3.2 % (1.0-6.0); HEMATOCRIT 42.7 % (36-46); HEMOGLOBIN 13.6 g/dL (12.0-16.0); LYMPHOCYTES # (AUTO) 1.6 K/uL (1.0-4.8); LYMPHOCYTES % (AUTO) 24.1 % (22.0-44.0); MEAN CORPUSCULAR HEMOGLOBIN 29.9 pg (26.0-34.0); MEAN CORPUSCULAR HGB CONC 31.8 G/dL (31.0-37.0); MEAN CORPUSCULAR VOLUME 94 fL (80-100); MONOCYTES # (AUTO) 0.5 K/uL (0.1-1.0); MONOCYTES % (AUTO) 7.3 % (2.0-9.0); NEUTROPHILS # (AUTO) 4.3 K/uL (1.8-7.7); NEUTROPHILS % (AUTO) 64.2 % (40.0-70.0); PLATELET COUNT (AUTO) 248 K/uL (150-450); RED BLOOD CELL COUNT(AUTO) 4.53 MIL/uL (4.00-5.20); RED CELL DISTRIBUTION WIDTH 13.4 % (11.5-14.5)
[2020-06-28 12:49] LABS: ANION GAP 4 mmol/L (8-16); CALCIUM, TOTAL 10.4 mg/dL (8.8-10.5); CARBON DIOXIDE 34 mmol/L (22-29); CHLORIDE 103 mmol/L (98-107); CREATININE 0.77 mg/dL (0.60-1.30); GLOMERULAR FILTR. RATE CALC > 60 mL/min (>60); GLUCOSE,RANDOM 95 mg/dL (70-110); SODIUM SERUM 141 mmol/L (136-145); UREA NITROGEN, BLOOD 13 mg/dL (7-18)
[2020-06-28 12:54] LABS: PROTHROMBIN TIME 10.5 SEC (9.4-11.6)
[2020-06-28 12:55] LABS: ALANINE AMINOTRANSFERASE 33 U/L (12-78); ALBUMIN 3.4 g/dL (3.4-5.0); ALKALINE PHOSPHATASE 97 U/L (46-116); ASPARTATE AMINOTRANSFERASE 22 U/L (15-37); BILIRUBIN,TOTAL 0.4 mg/dL (0.1-1.0); TOTAL PROTEIN, SERUM 6.9 g/dL (6.4-8.2)
[2020-06-28 12:57] LABS: LACTIC ACID 0.7 mmol/L (0.4-2.0)
[2020-06-28] MEDS ORDERED: CefTRIAXone 1 GM/DEXTROSE 50 ML IV ONE (13:15)
[2020-06-28] MEDS ORDERED: ACETAMINOPHEN 500 MG TABLET PO ONE (13:15)
[2020-06-28 13:30] VITALS: BP 143/79
[2020-06-28] MEDS ORDERED: DOXYCYCLINE HYCLATE 100 MG TABLET PO ONE (13:45)
== END 2020-06-28 14:14 | disposition home or self-care (01) ==
LOC: EMS 11:21
DX: L08.9 Local infection of the skin and subcutaneous tissue, unspecified (principal); L03.116 Cellulitis of left lower limb; I25.10 Atherosclerotic heart disease of native coronary artery without angina pectoris; I11.0 Hypertensive heart disease with heart failure; I50.9 Heart failure, unspecified; I25.2 Old myocardial infarction; J44.9 Chronic obstructive pulmonary disease, unspecified; Z87.891 Personal history of nicotine dependence; Z79.82 Long term (current) use of aspirin; Z88.5 Allergy status to narcotic agent; Z91.041 Radiographic dye allergy status; Z88.8 Allergy status to other drugs, medicaments and biological substances
CPT/HCPCS: 83605; 87040; 87070